=== PATIENT | female | born 1935 | race Caucasian/White ===

== ENCOUNTER → 2016-11-28 | Outpatient (CLI) | payer OTHER ==
[2016-11-28 12:20] LABS: ALT/SGPT 30 U/L (12-78); AST/SGOT 15 U/L (15-37); BLOOD UREA NITROGEN 16 mg/dl (7-18); BUN/CREATININE RATIO 24.5 (10-20); CARBON DIOXIDE 29 mmol/L (21-32); CHLORIDE 105 mmol/L (98-107); CHOLESTEROL 262 mg/dl (0-200); CREATININE 0.65 mg/dl (0.60-1.20); GLUCOSE 95 mg/dl (70-99); SODIUM 142 mmol/L (136-145); TRIGLYCERIDES 59 mg/dl (0-150); VERY LOW DENSITY LIPOPROT CALC 12 mg/dl
[2016-11-28 12:31] LABS: CHOLESTEROL/HDL RATIO 1.8; ESTIMATED AVERAGE GLUCOSE 114 mg/dl; HA1C FLAG Normal (Normal); HDL CHOLESTEROL 143 mg/dl; LDL CHOLESTEROL CALCULATED 107 mg/dl
[2016-11-28 12:56] LABS: URINE APPEARANCE TURBID (CLEAR); URINE BILIRUBIN NEG (NEG); URINE COLOR YELLOW; URINE EPITHELIAL CELL AUTO 20-30 /lpf (0-5); URINE NITRITE NEG (NEG); URINE SPECIFIC GRAVITY 1.015 (1.000-1.030); UROBILINOGEN NEG (NEG)
[2016-11-28 13:09] LABS: MANUAL MICROSCOPIC REQUIRED? NO; REVIEW REQ? NO
--- NOTE | 2016-12-05 07:32 | CODING QUERY MEDICAL NECESSITY ---
CQSUPPORTING DIAGNOSIS NEEDED A supporting diagnosis is required for the test/procedure performed on this patient in order for us to be reimbursed by the patient's insurance. Please provide a supporting diagnosis for the following test/procedure listed below next to the test name along with your signature. *If there is no additional diagnosis for this patient that would support the following test/procedure please document that below next to the test/procedure. Test(s)/Procedure(s) that require a supporting diagnosis: DOS 11/28/16 GYCATED HEMOGLOBIN TEST Provider Signature: Date: Thank you Katja Celestin Health Information Management Once completed, please kindly fax back to [phone] For questions please call [phone]
== END | disposition home or self-care (01) ==
LOC: C.LAB1850 10:07
PROVIDERS: ATTEND Internal Medicine
DX: N39.0 Urinary tract infection, site not specified (principal); E03.9 Hypothyroidism, unspecified; E78.5 Hyperlipidemia, unspecified; R73.03 Prediabetes

== ENCOUNTER → 2016-12-11 | Outpatient (CLI) | payer OTHER | END | disposition home or self-care (01) | LOC: C.LAB1850 11:45 | PROVIDERS: ATTEND Internal Medicine | DX: M79.609 Pain in unspecified limb (principal) ==

== ENCOUNTER → 2017-02-18 | Outpatient (CLI) | payer OTHER ==
--- NOTE | 2017-02-18 13:10 | MAMMOGRAPHY REPORT ---
BILATERAL DIGITAL SCREENING MAMMOGRAM WITH CAD: 02/18/2017 CLINICAL HISTORY: Routine screening. Patient has no complaints. TECHNIQUE: Bilateral CC and MLO views were obtained. Current study was also evaluated with a Compute r Aided Detection (CAD) system. COMPARISON: Comparison is made to exams dated: 02/01/2016 mammogram, 01/16/2015 mammogram, 12/29/2013 m ammogram, 12/25/2012 mammogram, 12/18/2011 mammogram, and 12/06/2010 mammogram - [facility] nter. BREAST COMPOSITION: The tissue of both breasts is heterogeneously dense, which may obscure small mas ses. FINDINGS: There are a few benign rim calcifications and mild vascular calcifications in the breasts. Stable punctate microcalcifications in the lateral left breast. No new suspicious mass, architectur al distortion or cluster of microcalcifications is seen. IMPRESSION: ACR BI-RADS CATEGORY 1: NEGATIVE There is no mammographic evidence of malignancy. A 1 year screening mammogram is recommended. The pa tient will receive written notification of the results. Approximately 10% of breast cancers are not detected with mammography. A negative mammographic report should not delay biopsy if a clinically suggestive mass is present. Noy Perez M.D. ay/:02/18/2017 12:23:49 Pastry Chef: Ibis GRECO(Misa)(Lashay)(BD), [facility] letter sent: Normal 1/2 BI-RADS Code: ACR BI-RADS Category 1: Negative
== END | disposition home or self-care (01) ==
LOC: C.MAMM 11:48
PROVIDERS: ATTEND Nurse Practitioner Adult Health
DX: Z12.31 Encounter for screening mammogram for malignant neoplasm of breast (principal)

== ENCOUNTER → 2017-05-15 | Outpatient (CLI) | payer OTHER ==
[2017-05-15 12:28] LABS: ESTIMATED AVERAGE GLUCOSE 111 mg/dl; HA1C FLAG Normal (Normal)
[2017-05-15 12:58] LABS: BLOOD UREA NITROGEN 15 mg/dl (7-18); CALCIUM 8.7 mg/dl (8.5-10.1); CARBON DIOXIDE 28 mmol/L (21-32); CHLORIDE 107 mmol/L (98-107); CREATININE 0.67 mg/dl (0.60-1.20); GLUCOSE 87 mg/dl (70-99); POTASSIUM 3.8 mmol/L (3.5-5.1); SODIUM 141 mmol/L (136-145)
[2017-05-15 13:08] LABS: CHOLESTEROL 250 mg/dl (0-200); CHOLESTEROL/HDL RATIO 1.9; HDL CHOLESTEROL 129 mg/dl; LDL CHOLESTEROL CALCULATED 110 mg/dl; TRIGLYCERIDES 56 mg/dl (0-150); VERY LOW DENSITY LIPOPROT CALC 11 mg/dl
== END | disposition home or self-care (01) ==
LOC: C.LAB1850 10:03
PROVIDERS: ATTEND Internal Medicine
DX: R53.83 Other fatigue (principal); M85.80 Other specified disorders of bone density and structure, unspecified site; R73.03 Prediabetes; E78.5 Hyperlipidemia, unspecified; E03.9 Hypothyroidism, unspecified; E55.9 Vitamin D deficiency, unspecified

== ENCOUNTER → 2017-12-08 | Outpatient (CLI) | payer OTHER ==
[2017-12-08 11:39] LABS: HEMOGLOBIN A1C 5.7 % (4.5-5.6)
[2017-12-08 11:52] LABS: ALT/SGPT 50 U/L (12-78); AST/SGOT 32 U/L (15-37); BLOOD UREA NITROGEN 19 mg/dl (7-18); CALCIUM 8.5 mg/dl (8.5-10.1); CARBON DIOXIDE 29 mmol/L (21-32); CHOLESTEROL 263 mg/dl (0-200); CREATININE 0.66 mg/dl (0.60-1.20); GLUCOSE 95 mg/dl (70-99); LDL CHOLESTEROL CALCULATED 137 mg/dl; POTASSIUM 3.9 mmol/L (3.5-5.1); SODIUM 141 mmol/L (136-145)
== END | disposition home or self-care (01) ==
LOC: C.LAB1850 09:41
PROVIDERS: ATTEND Internal Medicine
DX: R73.03 Prediabetes (principal); E03.9 Hypothyroidism, unspecified; E78.5 Hyperlipidemia, unspecified

== ENCOUNTER → 2018-02-26 | Outpatient (CLI) | payer OTHER ==
--- NOTE | 2018-02-27 15:27 | MAMMOGRAPHY REPORT ---
BILATERAL DIGITAL SCREENING MAMMOGRAM TOMOSYNTHESIS WITH CAD: 02/26/2018 CLINICAL HISTORY: Routine screening. Patient has no complaints. TECHNIQUE: The study was acquired using full field digital technology and interpreted from soft copy. Breast tomosynthesis in addition to standard 2D mammography was performed. Current study was also ev aluated with a Computer Aided Detection (CAD) system. COMPARISON: Comparison is made to exams dated: 02/18/2017 mammogram, 02/01/2016 mammogram, 01/16/2015 ma mmogram, 12/29/2013 mammogram, 12/25/2012 mammogram, and 12/18/2011 mammogram - [facility] ter. BREAST COMPOSITION: The tissue of both breasts is heterogeneously dense, which may obscure small mass es. FINDINGS: No suspicious masses, calcifications, or areas of architectural distortion are noted in either breast . There has been no significant interval change compared to prior exams. Bilateral benign-appearing calcifications are not significantly changed. IMPRESSION: ACR BI-RADS CATEGORY 2: BENIGN There is no mammographic evidence of malignancy. A 1 year screening mammogram is recommended.( 019) The patient will receive written notification of the results. Some breast cancers are not detected with mammography. A negative mammographic report should not arnulfo y biopsy if a clinically suggestive mass is present. Vandana Su M.D. ah/:02/26/2018 15:11:05 Rehabilitation Services Manager: RT Ace(R)(M), [facility] letter sent: Normal 1/2 BI-RADS Code: ACR BI-RADS Category 2: Benign
== END | disposition home or self-care (01) ==
LOC: C.MAMM 12:59
PROVIDERS: ATTEND Nurse Practitioner Adult Health
DX: Z12.31 Encounter for screening mammogram for malignant neoplasm of breast (principal)

== ENCOUNTER 2024-03-28 19:42 | Inpatient (IN) ==
[2024-03-28 20:38] LABS: Basophils # (auto) 0.04 K/uL (0.00-0.20); Basophils % (auto) 0.6 %; Eosinophils # (auto) 0.13 K/uL (0.00-0.50); Eosinophils % (auto) 1.9 %; Hematocrit (blood only) 41.7 % (37.0-47.0); Hemoglobin 14.2 g/dl (12.0-16.0); Immature Granulocytes # (auto) 0.02 K/uL (0.01-0.20); Immature Granulocytes % (auto) 0.3 %; Lymphocytes # (auto) 1.44 K/uL (1.20-3.40); Lymphocytes % (auto) 21.4 %; Mean Corpuscular Hemoglobin 31.6 pg (25.0-34.0); Mean Corpuscular Hgb Conc 34.1 g/dL (32.0-36.0); Mean Corpuscular Volume 92.7 fL (80.0-100.0); Mean Platelet Volume 9.6 fL (9.4-12.4); Monocytes % (auto) 7.4 %; Neutrophils # (auto) 4.61 K/uL (1.40-6.50); Neutrophils % (auto) 68.4 %; Platelet Count 374 K/uL (130-400); RDW Coefficient of Variation 13.3 % (11.5-14.5); RDW Standard Deviation 45.8 fL (36.4-46.3); White Blood Count 6.74 K/ul (4.8-10.8)
--- NOTE | 2024-03-28 20:54 | Emergency Department Note ---
Impression & Plan Generalized weakness, Ambulatory dysfunction ED Provider Note HISTORY OF PRESENT ILLNESS: Patient is an 89-year-old female presenting with weakness. Patient reports that she was living in [place] for the last 13 years and just moved back to the [facility] 1 year ago. She reports that she has a history of parkinsonian is him and is on carbidopa/levodopa. She reports she has been unable to establish yet with a neurologist in the [facility]. She had a referral from her primary care provider to establish with a neurologist at [facility], but her appointment is not for a number of months. She states that in the last 3 days she has been having progressively worsening weakness. Reports that it is taken her anywhere from 2 to 3 hours a day to get up out of bed and be able to get up and walk around with a walker. Her friend at bedside expresses concern about the patient's ability to care for herself at home. Patient denies any fevers. Denies any chest pain or shortness of breath. Denies any recent fall or head injuries or chiropractic manipulation of her neck. Denies any abdominal pain, nausea or vomiting. She denies any dysuria or hematuria. ROS: as above PHYSICAL EXAM: Constitutional: Patient appears in no acute distress. HENT: Head: Normocephalic and atraumatic. Eyes: EOMI, PERRL Mouth/Throat: Mucous membranes moist. Neck: Trachea midline. Neck supple. Cardiovascular: RRR, No murmurs, rubs or gallops. Intact distal pulses. Pulmonary/Chest: No respiratory distress. Breath sounds clear and equal bilaterally. No wheezes or rales Abdominal: Abdomen soft, no tenderness, rebound or guarding. Musculoskeletal: No edema, tenderness or deformity noted. Skin: Warm and dry. No rash, erythema, pallor or cyanosis Psychiatric: Appropriate mood and affect for situation. Neurological: Alert and keenly responsive. CN II-XII grossly intact, moving all extremities equally and fully. MDM: - Vitals signs showed hypertension - History obtained via patient. History as above. - Chronic conditions affecting care: Parkinsonian is him; hypothyroidism; HLD; pre-diabetes - Differential diagnoses include, but are not limited to: UTI; pneumonia; CVA; electrolyte abnormality; ACS; dysrhythmia; deconditioning - Order placed for continuous cardiac monitoring. At this time, monitor showed rate of 89 bpm with normal sinus rhythm, per my interpretation. - External medical records reviewed. Wellness visit note dated 12/22/2023 was reviewed. Patient was seen in clinic for her Medicare annual wellness exam. - EKG interpreted by myself showed normal sinus rhythm. Rate 82 bpm. QT 350. No acute ischemic changes. - Laboratory workup interpreted by myself showed normal WBC; normal PT/INR; stable electrolytes; normal troponin; normal TSH - UA negative for infection - CXR negative for pneumonia, per my interpretation - Viral respiratory panel negative - Concern by patient's friend expressed about her safety at home at this time given her weakness. Did discuss potential admission for PT/OT assessment and potential placement at rehab, to which the patient was agreeable. - Discussion was had with director case management about patient's case and need for admission - Hospitalist, Dr. Chaney, consulted for admission - Patient admitted to [facility] service for further evaluation and management. ASSESSMENT AND PLAN: Diagnosis: Generalized weakness; ambulatory dysfunction Plan: admit Past Med/Surg History Problem List (Updated 03/28/24 @ 22:00 by Mariann Wise MD) Ambulatory dysfunction (Acute) Generalized weakness (Acute) Balance disorder Sciatic pain Medicare annual wellness visit, subsequent Psoas muscle strain Parkinsonism Generalized osteoarthritis of multiple sites (Acute) Hyperlipidemia (Acute) Hypothyroidism (Acute) Osteopenia (Acute) Prediabetes (Acute) Venous insufficiency (Acute) Vitamin D deficiency (Acute) Medical History Achilles tendinitis Surgical History No history of previous surgery Family History Sister Colorectal cancer Myocardial infarction Dementia Grandmother (Maternal) Rheumatoid arthritis Father Emphysema, unspecified Denies family history of Ovarian cancer Prostate cancer Breast cancer Social History Smoking Status: Never smoker Second Hand Exposure: No; Do You Dip or Chew Tobacco: No; Hx Alcohol Use: Yes Alcohol type: wine Alcohol Intake Frequency: 2-3 x/Week Hx Substance Use: No Preferred Language: Cuban Communication Ability: Effective Visual Impairment: Limited Hearing Ability: Normal marital status: / Current Living Situation: Alone current occupational status: retired Feels Safe at Home: Yes Childhood Exposure to Second-Hand Smoke: Yes Diet: regular Dental Care, Regularly: Yes Physical Activity Frequency: Does not Exercise Seatbelt Use: always Sunscreen Use: Yes Allergies Allergies Allergy/AdvReac Type Severity Reaction Status Date / Time Bee sting Allergy Uncoded 12/22/23 14:08 Perry POWD Allergy Uncoded 12/22/23 14:08 Food Dye Allergy Uncoded 12/22/23 14:08 Sulfa Drugs Allergy Uncoded 12/22/23 14:08 Home Meds Home Medications Medication Instructions Recorded Confirmed azelastine 205.5 mcg (0.15 %) 2 sprays intranasal DAILY PRN 05/20/19 03/28/24 nasal spray allergy symptoms estradiol 0.025 mg/24 hr weekly 1 patch transdermal WK 05/20/19 03/28/24 transdermal patch fexofenadine 180 mg tablet 180 mg PO DAILY PRN allergy 05/20/19 03/28/24 symptoms #30 tabs fluticasone propionate 50 1 - 2 sprays intranasal DAILY PRN 05/20/19 03/28/24 mcg/actuation nasal allergy symptoms #1 g spray,suspension carbidopa ER 50 mg-levodopa 200 mg 1 tab PO QID 07/05/20 03/28/24 tablet,extended release multivitamin (Super Multivitamin 1 tab PO DAILY 04/29/22 03/28/24 tablet) magnesium chloride 64 mg 64 mg PO DAILY 06/20/23 03/28/24 (magnesium chloride) tablet,delayed release (Mag 64) vitamin B complex 1 tab PO DAILY 03/28/24 03/28/24 Previous Rx's Medication Instructions Recorded epinephrine 0.3 mg/0.3 mL 0.3 mg (0.3 mL) IM PRN #2 ea 04/29/22 injection, auto-injector coenzyme Q10 100 mg capsule 100 mg PO DAILY #30 caps 12/12/22 (CoQ-10) levothyroxine 50 mcg tablet 100 mcg (2 x 50 mcg) PO DAILY #180 06/30/23 tabs ibuprofen 600 mg tablet 600 mg PO BID #180 tabs 03/02/24 Results & Data (ED) Vital Signs Vital Signs - 24 hr 03/28/24 19:44 03/28/24 19:55 03/28/24 19:56 Temperature 36.8 C Temperature Source Temporal Artery Scan Pulse Rate 105 H 89 Pulse Rhythm Regular Pulse Strength Normal Respiratory Rate 18 Respiratory Effort / Characteristics Non-Labored Spontaneous Respiratory Depth Normal Respiratory Pattern Regular Blood Pressure 147/82 H Blood Pressure Mean 103 Blood Pressure Position Sitting Pulse Oximetry 96 97 Oxygen Delivery Method Room Air Room Air Sepsis Recent Fever Within 48 Hours No Sepsis New/Unexplained Change in Mental Status N/A Sepsis Action Taken by Nursing No Action Required Laboratory Data 03/28/24 20:12 03/28/24 20:12 Lab Results 03/28/24 03/28/24 Range/Units 20:12 21:08 WBC 6.74 (4.8-10.8) K/ul RBC 4.50 (4.20-5.40) M/uL Hgb 14.2 (12.0-16.0) g/dl Hct 41.7 (37.0-47.0) % MCV 92.7 (80.0-100.0) fL MCH 31.6 (25.0-34.0) pg MCHC 34.1 (32.0-36.0) g/dL RDW Std Deviation 45.8 (36.4-46.3) fL RDW Coeff of Scott 13.3 (11.5-14.5) % Plt Count 374 (130-400) K/uL MPV 9.6 (9.4-12.4) fL Immature Gran % (Auto) 0.3 % Neut % (Auto) 68.4 % Lymph % (Auto) 21.4 % Hughes % (Auto) 7.4 % Eos % (Auto) 1.9 % Baso % (Auto) 0.6 % Neut # (Auto) 4.61 (1.40-6.50) K/uL Lymph # (Auto) 1.44 (1.20-3.40) K/uL Hughes # (Auto) 0.50 (0.11-0.59) K/uL Eos # (Auto) 0.13 (0.00-0.50) K/uL Baso # (Auto) 0.04 (0.00-0.20) K/uL Immature Gran # (Auto) 0.02 (0.01-0.20) K/uL PT 10.3 (9.0-12.0) Seconds INR 0.9 (0.9-1.1) Sodium 138 (136-145) mmol/L Potassium 3.8 (3.5-5.1) mmol/L Chloride 103 (98-107) mmol/L Carbon Dioxide 29 (21-32) mmol/L Anion Gap 6 (3-11) BUN 27 H (6-23) mg/dl Creatinine 0.63 (0.6-1.2) mg/dl Est Cr Clr Drug Dosing 49.8 ml/min Est GFR ( Amer) 93.5 ml/min Est GFR (Non-Af Amer) 80.6 ml/min BUN/Creatinine Ratio 42.9 H (10-20) Glucose 98 (70-99(Fasting)) mg/dl Lactate 1.0 (0.4-2.0) mmol/L Calcium 8.9 (8.6-10.3) mg/dl Magnesium 1.9 (1.7-2.4) mg/dl Total Bilirubin 0.5 (0.2-1.0) mg/dl AST 20 (13-39) U/L ALT 5 L (7-52) U/L Alkaline Phosphatase 65 (34-104) U/L Troponin I High Sens 5.0 (0-14) pg/ml Total Protein 6.3 (6.0-8.3) gm/dl Albumin 4.0 (3.4-5.0) gm/dl Globulin 2.3 L (2.5-4.0) gm/dl Albumin/Globulin Ratio 1.7 (0.9-2) TSH 0.549 (0.300-4.500) uIu/ml Urine Color Yellow Urine Appearance Clear (Clear) Urine pH 6.5 (4.5-7.5) Ur Specific [place] 1.011 (1.000-1.030) Urine Protein Negative (Negative) Urine Glucose (UA) Negative (Negative) Urine Ketones Negative (Negative) Urine Blood Negative (Negative) Urine Nitrite Negative (Negative) Urine Bilirubin Negative (Negative) Urine Urobilinogen Negative (Negative) Ur Leukocyte Esterase Negative (Negative) Adenovirus (PCR) Not Detected (NotDetected) B. pertussis DNA (PCR) Not Detected (NotDetected) B.parapertussis DNA PCR Not Detected (NotDetected) C. pneumoniae DNA (PCR) Not Detected (NotDetected) Coronavirus OC43 (PCR) Not Detected (NotDetected) Coronavirus HKU1 (PCR) Not Detected (NotDetected) Coronavirus 229E (PCR) Not Detected (NotDetected) SARS-CoV-2 (PCR) Not Detected (NotDetected) Coronavirus NL63 (PCR) Not Detected (NotDetected) Human Metapneumovir PCR Not Detected (NotDetected) Influenza Type A (PCR) Not Detected (NotDetected) Influenza Type B (PCR) Not Detected (NotDetected) M. pneumoniae (PCR) Not Detected (NotDetected) Parainfluenza 1 (PCR) Not Detected (NotDetected) Parainfluenza 2 (PCR) Not Detected (NotDetected) Parainfluenza 3 (PCR) Not Detected (NotDetected) Parainfluenza 4 (PCR) Not Detected (NotDetected) RSV (PCR) Not Detected (NotDetected) Entero/Rhino (PCR) Not Detected (NotDetected) Discharge Plan Visit Data Chief Complaint: Leg Weakness, Bilateral Stated Complaint: WEAKNESS IN LEGS, COULDN'T GET UP ED Provider: Mariann Wise Discharge Problem: Generalized weakness, Ambulatory dysfunction Forms Stand Alone Forms: My [facility] Prescriptions Prescriptions: No Action levothyroxine 50 mcg tablet 100 mcg PO DAILY Qty: 180 3RF ibuprofen 600 mg tablet 600 mg PO BID Qty: 180 1RF Rx Instructions: Never take on an empty stomach and be sure to drink plenty of water azelastine 0.15 % (205.5 mcg) spray,non-aerosol 2 sprays INTNAS DAILY PRN (Reason: allergy symptoms) Mag 64 64 mg tablet,delayed release (DR/EC) 64 mg PO DAILY carbidopa-levodopa 50-200 mg tablet extended release 1 tab PO QID Rx Instructions: divide evenly over waking hours estradiol 0.025 mg/24 hr patch weekly 1 patch TD WK fexofenadine 180 mg tablet 180 mg PO DAILY PRN (Reason: allergy symptoms) Qty: 30 fluticasone propionate 50 mcg/actuation spray,suspension 1 - 2 sprays intranasal DAILY PRN (Reason: allergy symptoms) Qty: 1 multivitamin [Super Multivitamin] Tablet 1 tab PO DAILY epinephrine 0.3 mg/0.3 mL auto-injector 0.3 mg IM PRN Qty: 2 3RF coenzyme Q10 [CoQ-10] 100 mg capsule 100 mg PO DAILY Qty: 30 0RF vitamin B complex Tablet 1 tab PO DAILY Referrals Referrals: ProReggie MD [Primary Care Provider] -
[2024-03-28 20:58] LABS: Albumin Globulin Ratio 1.7 (0.9-2); BUN Creatinine Ratio 42.9 (10-20); Bilirubin,Total 0.5 mg/dl (0.2-1.0); Calcium 8.9 mg/dl (8.6-10.3); Creatinine Clr Calc Pharmacy 49.8 ml/min; Est GFR (African American) 93.5 ml/min; Est GFR (Non-African American) 80.6 ml/min; Globulin 2.3 gm/dl (2.5-4.0); Magnesium 1.9 mg/dl (1.7-2.4); Potassium 3.8 mmol/L (3.5-5.1); Total Protein 6.3 gm/dl (6.0-8.3)
[2024-03-28 21:08] LABS: INR 0.9 (0.9-1.1); Prothrombin Time 10.3 Seconds (9.0-12.0)
[2024-03-28 21:13] LABS: Thyroid Stimulating Hormone 0.549 uIu/ml (0.300-4.500)
[2024-03-28 21:22] LABS: Adenovirus PCR Not Detected (NotDetected); Bordetella parapertussis PCR Not Detected (NotDetected); Bordetella pertussis PCR Not Detected (NotDetected); Chlamydia pneumoniae PCR Not Detected (NotDetected); Coronavirus 229E PCR Not Detected (NotDetected); Coronavirus CoV-2 (COVID19)PCR Not Detected (NotDetected); Coronavirus HKU1 PCR Not Detected (NotDetected); Coronavirus NL63 PCR Not Detected (NotDetected); Coronavirus OC43PCR Not Detected (NotDetected); Human Metapneumovirus PCR Not Detected (NotDetected); Influenza A PCR Not Detected (NotDetected); Influenza B PCR Not Detected (NotDetected); Mycoplasma pneumoniae PCR Not Detected (NotDetected); Parainfluenza Virus 1 PCR Not Detected (NotDetected); Parainfluenza Virus 2 PCR Not Detected (NotDetected); Parainfluenza Virus 3 PCR Not Detected (NotDetected); Parainfluenza Virus 4 PCR Not Detected (NotDetected); Respiratory Syncytial VirusPCR Not Detected (NotDetected); Rhinovirus/Enterovirus PCR Not Detected (NotDetected)
[2024-03-28 21:28] LABS: Appearance Urine Clear (Clear); Bilirubin Urine Negative (Negative); Blood Urine Negative (Negative); Color Urine Yellow; Glucose Urine UA Negative (Negative); Ketones Urine Negative (Negative); Leukocyte Esterase Urine Negative (Negative); Nitrite Urine Negative (Negative); Protein Urine Negative (Negative); Specific Gravity Urine 1.011 (1.000-1.030); Urobilinogen Urine Negative (Negative); pH Urine 6.5 (4.5-7.5)
--- NOTE | 2024-03-28 22:17 | History & Physical Report ---
Date of Service March 28, 2024 Assessment & Plan (1) Ambulatory dysfunction: Plan: Patient with progressive decline, possibly secondary to her Parkinsonism. No obvious infection, electrolyte abnormality or renal disease -Admit to medical -PT/OT evaluation -CM evaluation for placement -Consider Neurology consultation - patient should establish locally with Neurology (2) Parkinsonism: Plan: Patient on Carbidopa-Levodopa - notes worsening balance over the last week, after filling a new prescription -Continue Sinemet at home dose -Consider Neurology consultation vs outpatient followup History of Present Illness Chief Complaint: weakness Primary Care Provider: Reggie Lubin MD Mildred Unger is an 89yo female with history of Hyperlipidemia, Hypothyroidism and Parkinsonism on longstanding Carbidopa-Levodopa therapy presenting with progressive generalized weakness. Patient reports taking 3 hours to get up out of bed yesterday. She has generalized weakness otherwise no specific complaints. Patient lives alone - has family that checks on her. She did just get a new prescription of her Carbidopa-Levodopa filled recently. 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 She feels that her medication isn't lasting as long as it used to. She started her new prescription approximately one week ago. She gets her prescriptions from her previous doctor in [place]. Does not follow locally with Neurology. She has tried to get in to [facility] but the wait is over 1 year out. In the ER she is afebrile, HD stable and nontoxic Allergies Allergy/AdvReac Type Severity Reaction Status Date / Time Bee sting Allergy Uncoded 12/22/23 14:08 [place] POWD Allergy Uncoded 12/22/23 14:08 Food Dye Allergy Uncoded 12/22/23 14:08 Sulfa Drugs Allergy Uncoded 12/22/23 14:08 Home Medications Medication Instructions Recorded Confirmed Type azelastine 205.5 mcg (0.15 %) 2 sprays intranasal DAILY PRN 05/20/19 03/28/24 History nasal spray allergy symptoms estradiol 0.025 mg/24 hr weekly 1 patch transdermal WK 05/20/19 03/28/24 History transdermal patch fexofenadine 180 mg tablet 180 mg PO DAILY PRN allergy 05/20/19 03/28/24 History symptoms #30 tabs fluticasone propionate 50 1 - 2 sprays intranasal DAILY PRN 05/20/19 03/28/24 History mcg/actuation nasal allergy symptoms #1 g spray,suspension carbidopa ER 50 mg-levodopa 200 mg 1 tab PO QID 07/05/20 03/28/24 History tablet,extended release epinephrine 0.3 mg/0.3 mL 0.3 mg (0.3 mL) IM PRN #2 ea 04/29/22 03/28/24 Rx injection, auto-injector multivitamin (Super Multivitamin 1 tab PO DAILY 04/29/22 03/28/24 History tablet) coenzyme Q10 100 mg capsule 100 mg PO DAILY #30 caps 12/12/22 03/28/24 Rx (CoQ-10) magnesium chloride 64 mg 64 mg PO DAILY 06/20/23 03/28/24 History (magnesium chloride) tablet,delayed release (Mag 64) levothyroxine 50 mcg tablet 100 mcg (2 x 50 mcg) PO DAILY #180 06/30/23 03/28/24 Rx tabs ibuprofen 600 mg tablet 600 mg PO BID #180 tabs 03/02/24 03/28/24 Rx vitamin B complex 1 tab PO DAILY 03/28/24 03/28/24 History Past Med/Surg History Problem List Ambulatory dysfunction (Acute) Generalized weakness (Acute) Balance disorder Sciatic pain Medicare annual wellness visit, subsequent Psoas muscle strain Parkinsonism Generalized osteoarthritis of multiple sites (Acute) Hyperlipidemia (Acute) Hypothyroidism (Acute) Osteopenia (Acute) Prediabetes (Acute) Venous insufficiency (Acute) Vitamin D deficiency (Acute) Medical History Achilles tendinitis Surgical History No history of previous surgery Family History Sister Colorectal cancer Myocardial infarction Dementia Grandmother (Maternal) Rheumatoid arthritis Father Emphysema, unspecified Denies family history of Ovarian cancer Prostate cancer Breast cancer Social History Smoking Status: Never smoker Second Hand Exposure: No; Do You Dip or Chew Tobacco: No; Hx Alcohol Use: Yes Alcohol type: wine Alcohol Intake Frequency: 2-3 x/Week Hx Substance Use: No Preferred Language: Belarusian Communication Ability: Effective Visual Impairment: Limited Hearing Ability: Normal marital status: / Current Living Situation: Alone current occupational status: retired Feels Safe at Home: Yes Childhood Exposure to Second-Hand Smoke: Yes Diet: regular Dental Care, Regularly: Yes Physical Activity Frequency: Does not Exercise Seatbelt Use: always Sunscreen Use: Yes Review of Systems Review of Systems: All systems reviewed & are unremarkable except as noted in HPI & below Physical Exam Physical Exam: General: patient resting comfortably, NAD, non-toxic in appearance, AA&O x 4 Skin: warm, dry, intact, no rashes or lesions HEENT: NC/AT, PERRL, EOMI, anicteric sclera, conjunctiva without injection, external ear normal to inspection and nontender, nares patent, moist mucus membranes, dentition intact, no oropharyngeal lesions, neck supple, trachea midline, no LAD, no thyromegaly, no JVD Heart: +S1/S2, regular, no m/r/g Lungs: equal air entry bilaterally, no rales/rhonchi/wheezes Abd: +BS, soft, NT/ND, no masses/organomegaly/ascites Ext: warm, 2+ pulses in UE/LE bilaterally, no clubbing/cyanosis or edema Neuro: some rigidity noted in right wrist and hand, patient is slow to answer questions Results & Data Results & Data Vital Signs (Past 12 Hours) Vital Signs Temp Pulse Resp BP Pulse Ox O2 Del Method 03/28/24 19:56 89 03/28/24 19:55 97 Room Air 03/28/24 19:44 36.8 C 105 H 18 147/82 H 96 Room Air Laboratory Results Laboratory Results WBC 6.74 K/ul (4.8-10.8) 03/28/24 20:12 RBC 4.50 M/uL (4.20-5.40) 03/28/24 20:12 Hgb 14.2 g/dl (12.0-16.0) 03/28/24 20:12 Hct 41.7 % (37.0-47.0) 03/28/24 20:12 MCV 92.7 fL (80.0-100.0) 03/28/24 20:12 MCH 31.6 pg (25.0-34.0) 03/28/24 20:12 MCHC 34.1 g/dL (32.0-36.0) 03/28/24 20:12 RDW Std Deviation 45.8 fL (36.4-46.3) 03/28/24 20:12 RDW Coeff of Scott 13.3 % (11.5-14.5) 03/28/24 20:12 Plt Count 374 K/uL (130-400) 03/28/24 20:12 MPV 9.6 fL (9.4-12.4) 03/28/24 20:12 Immature Gran % (Auto) 0.3 % 03/28/24 20:12 Neut % (Auto) 68.4 % 03/28/24 20:12 Lymph % (Auto) 21.4 % 03/28/24 20:12 Carter % (Auto) 7.4 % 03/28/24 20:12 Eos % (Auto) 1.9 % 03/28/24 20:12 Baso % (Auto) 0.6 % 03/28/24 20:12 Neut # (Auto) 4.61 K/uL (1.40-6.50) 03/28/24 20:12 Lymph # (Auto) 1.44 K/uL (1.20-3.40) 03/28/24 20:12 Carter # (Auto) 0.50 K/uL (0.11-0.59) 03/28/24 20:12 Eos # (Auto) 0.13 K/uL (0.00-0.50) 03/28/24 20:12 Baso # (Auto) 0.04 K/uL (0.00-0.20) 03/28/24 20:12 Immature Gran # (Auto) 0.02 K/uL (0.01-0.20) 03/28/24 20:12 PT 10.3 Seconds (9.0-12.0) 03/28/24 20:12 INR 0.9 (0.9-1.1) 03/28/24 20:12 Sodium 138 mmol/L (136-145) 03/28/24 20:12 Potassium 3.8 mmol/L (3.5-5.1) 03/28/24 20:12 Chloride 103 mmol/L (98-107) 03/28/24 20:12 Carbon Dioxide 29 mmol/L (21-32) 03/28/24 20:12 Anion Gap 6 (3-11) 03/28/24 20:12 BUN 27 mg/dl (6-23) H 03/28/24 20:12 Creatinine 0.63 mg/dl (0.6-1.2) 03/28/24 20:12 Est Cr Clr Drug Dosing 49.8 ml/min 03/28/24 20:12 Est GFR ( Amer) 93.5 ml/min 03/28/24 20:12 Est GFR (Non-Af Amer) 80.6 ml/min 03/28/24 20:12 BUN/Creatinine Ratio 42.9 (10-20) H 03/28/24 20:12 Glucose 98 mg/dl (70-99(Fasting)) 03/28/24 20:12 Lactate 1.0 mmol/L (0.4-2.0) 03/28/24 20:12 Calcium 8.9 mg/dl (8.6-10.3) 03/28/24 20:12 Magnesium 1.9 mg/dl (1.7-2.4) 03/28/24 20:12 Total Bilirubin 0.5 mg/dl (0.2-1.0) 03/28/24 20:12 AST 20 U/L (13-39) 03/28/24 20:12 ALT 5 U/L (7-52) L 03/28/24 20:12 Alkaline Phosphatase 65 U/L (34-104) 03/28/24 20:12 Troponin I High Sens 5.0 pg/ml (0-14) 03/28/24 20:12 Total Protein 6.3 gm/dl (6.0-8.3) 03/28/24 20:12 Albumin 4.0 gm/dl (3.4-5.0) 03/28/24 20:12 Globulin 2.3 gm/dl (2.5-4.0) L 03/28/24 20:12 Albumin/Globulin Ratio 1.7 (0.9-2) 03/28/24 20:12 TSH 0.549 uIu/ml (0.300-4.500) 03/28/24 20:12 Urine Color Yellow 03/28/24 21:08 Urine Appearance Clear (Clear) 03/28/24 21:08 Urine pH 6.5 (4.5-7.5) 03/28/24 21:08 Ur Specific [place] 1.011 (1.000-1.030) 03/28/24 21:08 Urine Protein Negative (Negative) 03/28/24 21:08 Urine Glucose (UA) Negative (Negative) 03/28/24 21:08 Urine Ketones Negative (Negative) 03/28/24 21:08 Urine Blood Negative (Negative) 03/28/24 21:08 Urine Nitrite Negative (Negative) 03/28/24 21:08 Urine Bilirubin Negative (Negative) 03/28/24 21:08 Urine Urobilinogen Negative (Negative) 03/28/24 21:08 Ur Leukocyte Esterase Negative (Negative) 03/28/24 21:08 Adenovirus (PCR) Not Detected (NotDetected) 03/28/24 20:12 B. pertussis DNA (PCR) Not Detected (NotDetected) 03/28/24 20:12 B.parapertussis DNA PCR Not Detected (NotDetected) 03/28/24 20:12 C. pneumoniae DNA (PCR) Not Detected (NotDetected) 03/28/24 20:12 Coronavirus OC43 (PCR) Not Detected (NotDetected) 03/28/24 20:12 Coronavirus HKU1 (PCR) Not Detected (NotDetected) 03/28/24 20:12 Coronavirus 229E (PCR) Not Detected (NotDetected) 03/28/24 20:12 SARS-CoV-2 (PCR) Not Detected (NotDetected) 03/28/24 20:12 Coronavirus NL63 (PCR) Not Detected (NotDetected) 03/28/24 20:12 Human Metapneumovir PCR Not Detected (NotDetected) 03/28/24 20:12 Influenza Type A (PCR) Not Detected (NotDetected) 03/28/24 20:12 Influenza Type B (PCR) Not Detected (NotDetected) 03/28/24 20:12 M. pneumoniae (PCR) Not Detected (NotDetected) 03/28/24 20:12 Parainfluenza 1 (PCR) Not Detected (NotDetected) 03/28/24 20:12 Parainfluenza 2 (PCR) Not Detected (NotDetected) 03/28/24 20:12 Parainfluenza 3 (PCR) Not Detected (NotDetected) 03/28/24 20:12 Parainfluenza 4 (PCR) Not Detected (NotDetected) 03/28/24 20:12 RSV (PCR) Not Detected (NotDetected) 03/28/24 20:12 Entero/Rhino (PCR) Not Detected (NotDetected) 03/28/24 20:12 Diagnostic Findings CXR - per my interpretation - no infiltrate or edema PG Care Time/CCT Total # of Minutes Spent Total Time Spent with Patient: Total time spent is greater than 50% in coordination of care (as documented) at patient's floor/unit and/or counseling patient: Coding Level of Care Code 70114 INT INP/OBS CARE 2/55MIN Diagnoses Ambulatory dysfunction R26.2 Parkinsonism G20
[2024-03-28] MEDS ORDERED: ONDANSETRON INJ 2 MG/ML 2 ML VIAL IV PRN (23:53)
[2024-03-28] MEDS ORDERED: ACETAMINOPHEN 325 MG TAB PO PRN (23:53)
[2024-03-28] MEDS ORDERED: AZELASTINE HCL 0.1% NASAL 200 SPRAYS/27,400 MCG BTL PRN (23:59)
[2024-03-29] MEDS: LEVOTHYROXINE SODIUM 100 MCG TABLET PO SCH (05:47)
--- NOTE | 2024-03-29 07:14 | XRay Report ---
SINGLE VIEW CHEST CLINICAL HISTORY: Generalized weakness FINDINGS: An AP, portable, upright chest radiograph is compared to study dated 02/20/2016. A hiatal her javier is noted. The cardiomediastinal silhouette is top normal for projection noting atherosclerotic ca lcification of the thoracic aorta. Chronic interstitial thickening is similar to previous. Scarring/a telectasis is noted at the lung bases. The lungs and pleural spaces are otherwise clear. No pneumotho rax is seen. The skeletal structures are osteopenic. The bony thorax is grossly intact. Arthritic liliya nge is seen in both shoulders. Superior subluxation of both humeral heads suggest chronic bilateral r otator cuff injury. IMPRESSION: 1. No active disease in the chest. 2. Hiatal hernia. ACT 112: Negative or not required by law. Electronically signed by: Jaime Bansal M.D. 03/29/2024 7:13 AM
[2024-03-29] MEDS: CARBIDOPA/LEVODOPA 50/200MG EXT REL TAB PO SCH (07:44)
--- NOTE | 2024-03-29 09:39 | Neurology Consultation ---
Date of Consultation March 29, 2024 Assessment & Plan (1) Parkinsonism: History of Present Illness Attending Physician: Jimmy Cunningham MD History of Present Illness pt apparently dx with parkinsonism more than 10 yrs ago from [place] and was on sinemet for long time she states overall her parkinsonism has not changed. this morning pt walked with Physical therapy and able to walk with walker without much problem. when asked why she is on sinemet when she does not have parkinson diagnosis, she was not sure and she feels it helps. no focal weakness at this point. chart reviewed. admission HPI: Mildred Unger is an 89yo female with history of Hyperlipidemia, Hypothyroidism and Parkinsonism on longstanding Carbidopa-Levodopa therapy presenting with progressive generalized weakness. Patient reports taking 3 hours to get up out of bed yesterday. She has generalized weakness otherwise no specific complaints. Patient lives alone - has family that checks on her. She did just get a new prescription of her Carbidopa-Levodopa filled recently. 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 She feels that her medication isn't lasting as long as it used to. She started her new prescription approximately one week ago. She gets her prescriptions from her previous doctor in [place]. Does not follow locally with Neurology. She has tried to get in to [facility] but the wait is over 1 year out. In the ER she is afebrile, HD stable and nontoxic Allergies Allergy/AdvReac Type Severity Reaction Status Date / Time venom-honey bee Allergy Severe Unknown Verified 03/28/24 23:59 Sulfa (Sulfonamide Allergy Unknown Unknown Verified 03/28/24 23:59 Antibiotics) [place] POWD Allergy Unknown Uncoded 03/28/24 23:59 Home Medications Medication Instructions Recorded Confirmed Type azelastine 205.5 mcg (0.15 %) 2 sprays intranasal DAILY PRN 05/20/19 03/28/24 History nasal spray allergy symptoms estradiol 0.025 mg/24 hr weekly 1 patch transdermal WK 05/20/19 03/28/24 History transdermal patch fexofenadine 180 mg tablet 180 mg PO DAILY PRN allergy 05/20/19 03/28/24 History symptoms #30 tabs fluticasone propionate 50 1 - 2 sprays intranasal DAILY PRN 05/20/19 03/28/24 History mcg/actuation nasal allergy symptoms #1 g spray,suspension carbidopa ER 50 mg-levodopa 200 mg 1 tab PO QID 07/05/20 03/28/24 History tablet,extended release epinephrine 0.3 mg/0.3 mL 0.3 mg (0.3 mL) IM PRN #2 ea 04/29/22 03/28/24 Rx injection, auto-injector multivitamin (Super Multivitamin 1 tab PO DAILY 04/29/22 03/28/24 History tablet) coenzyme Q10 100 mg capsule 100 mg PO DAILY #30 caps 12/12/22 03/28/24 Rx (CoQ-10) magnesium chloride 64 mg 64 mg PO DAILY 06/20/23 03/28/24 History (magnesium chloride) tablet,delayed release (Mag 64) levothyroxine 50 mcg tablet 100 mcg (2 x 50 mcg) PO DAILY #180 06/30/23 03/28/24 Rx tabs ibuprofen 600 mg tablet 600 mg PO BID #180 tabs 03/02/24 03/28/24 Rx vitamin B complex 1 tab PO DAILY 03/28/24 03/28/24 History Patient History Medical History Achilles tendinitis Surgical History No history of previous surgery Family History Sister Colorectal cancer Myocardial infarction Dementia Grandmother (Maternal) Rheumatoid arthritis Father Emphysema, unspecified Denies family history of Ovarian cancer Prostate cancer Breast cancer Social History Smoking Status: Never smoker Second Hand Exposure: No; Do You Dip or Chew Tobacco: No; Hx Alcohol Use: Yes Alcohol type: wine Alcohol Intake Frequency: 2-3 x/Week Hx Substance Use: No Preferred Language: Cymraes Communication Ability: Effective Visual Impairment: Limited Hearing Ability: Normal Political Science Research Assistant Required: No Beliefs That Will Affect Care: None marital status: / Current Living Situation: Alone current occupational status: retired Feels Safe at Home: Yes Childhood Exposure to Second-Hand Smoke: Yes Diet: regular Dental Care, Regularly: Yes Physical Activity Frequency: Does not Exercise Seatbelt Use: always Sunscreen Use: Yes Assistive Devices: Walker Exam (Neuro) Physical Exam: HEENT: normocephalic grossly Neuro: Mental: AOx4, fluent speech, normal comprehension, no apraxia, no L/R confusion, no neglect CN: PERRL, Full EOM, symmetric face, midline T/U/P, grossly full ROM neck Motor: No abnormal movements, normal tone, 5-/5 t/o bilaterally Coord: intact DTR: 1+ sym b/l Gait: intact grossly with walker, small steps but with good pace. Impression: 89 yo female with generalized subjective weakness. overall her parkinsonism features are very mild and I do not feel she has parkinson disease. I do not feel she has DIE TURNER etiology for her symptoms. Recommendations: she can continue sinemet as now. per pt, her PCP already placed neurology referral and in a process of finding an appt at [facility]. not much to add from neurology stand point. continue supportive care and physical therapy/OT evaluation for any needs. call again if new question. Chart reviewed I have spent more than 50% educating patient about potential diagnosis and neurological evaluation and coordinating care with patient's treatment team. Total time spent (including chart review and coordination of care): 45 min (this includes chart review). Results & Data Vital Signs (Past 12 Hours) Vital Signs Temp Pulse Pulse Resp BP BP Pulse Ox 03/29/24 07:40 36.5 C 84 16 153/89 H 96 03/29/24 00:29 143/82 H 03/29/24 00:00 36.7 C 92 H 18 173/105 H 97 03/29/24 00:00 36.7 C 92 H 18 173/105 H 97 03/28/24 22:57 92 H 23 03/28/24 22:09 99 H 24 148/86 H 97 O2 Del Method 03/29/24 07:40 Room Air 03/29/24 00:29 03/29/24 00:00 Room Air 03/29/24 00:00 Room Air 03/28/24 22:57 03/28/24 22:09 Room Air PG Care Time/CCT Total # of Minutes Spent Total Time Spent with Patient: Total time spent is greater than 50% in coordination of care (as documented) at patient's floor/unit and/or counseling patient: Coding Level of Care Code 48986 IN/OBS CONSULT LVL 3,45M Diagnoses Parkinsonism G20
[2024-03-29] MEDS: IBUPROFEN 600 MG TAB PO SCH (09:54)
--- NOTE | 2024-03-29 12:56 | Electrocardiogram Report ---
Test Reason : Blood Pressure : */* mmHG Vent. Rate : 82 BPM Atrial Rate : 82 BPM P-R Int : 182 ms QRS Dur : 66 ms QT Int : 350 ms P-R-T Axes : 46 29 48 degrees QTcB Int : 408 ms Normal sinus rhythm Normal ECG No previous ECGs available Confirmed by Reggie Dawn ([id number]) on 03/29/2024 12:56:22 PM Referred By: REFERRED SELF Confirmed By: Reggie Dawn
--- NOTE | 2024-03-29 16:43 | Hospitalist Progress Note ---
Date of Service March 29, 2024 Assessment & Plan (1) Ambulatory dysfunction: Plan: Patient with progressive decline, possibly secondary to her Parkinsonism. No obvious infection, electrolyte abnormality or renal disease -Admit to medical -PT/OT evaluation -CM evaluation for placement -Neurology consulted. Continue Sinemet. No active workup or treatment plan recommended (2) Parkinsonism: Plan: Patient on Carbidopa-Levodopa - notes worsening balance over the last week, after filling a new prescription -Continue Sinemet at home dose -Neurology recommended continuing current dose of Sinemet Admission and Anticipated Discharge Date Admission Date: March 28, 2024 Subjective Patient feels well. Denies chest pain or shortness of breath. Says that she is weak and would benefit from some rehab. Review of Systems Review of Systems: All systems reviewed & are unremarkable except as noted in Subjective Physical Exam Physical Exam: General: Awake, conversant Heart: S1, S2/regular rate and rhythm, no murmur rubs or gallops Lungs: Clear to auscultation bilaterally. Normal effort Abdomen: Soft/nontender/nondistended. No hepatosplenomegaly Extremities: No clubbing/cyanosis. No edema Behavior: Appropriate, cooperative Results & Data Results & Data Vital Signs (Past 12 Hours) Vital Signs Temp Pulse Resp BP Pulse Ox O2 Del Method 03/29/24 15:17 36.5 C 85 18 158/78 H 96 Room Air 03/29/24 07:40 36.5 C 84 16 153/89 H 96 Room Air Laboratory Results Abnormal lab results 03/28/24 Range/Units 20:12 BUN 27 H (6-23) mg/dl BUN/Creatinine Ratio 42.9 H (10-20) ALT 5 L (7-52) U/L Globulin 2.3 L (2.5-4.0) gm/dl PG Care Time/CCT Total # of Minutes Spent Total Time Spent with Patient: Total time spent is greater than 50% in coordination of care (as documented) at patient's floor/unit and/or counseling patient: Coding Level of Care Code 02165 SUB INP/OBS CARE 2/35MIN Diagnoses Ambulatory dysfunction R26.2 Parkinsonism G20
[2024-03-29 20:20] VITALS: RESP 16; O2SAT 97
[2024-03-30 07:47] VITALS: BP 154/88; PULSE 79; TEMP 97.9
--- NOTE | 2024-03-30 13:37 | Discharge Summary ---
Date of Service March 30, 2024 Admission HPI Per Admitting Provider Mildred Unger is an 89yo female with history of Hyperlipidemia, Hypothyroidism and Parkinsonism on longstanding Carbidopa-Levodopa therapy presenting with progressive generalized weakness. Patient reports taking 3 hours to get up out of bed yesterday. She has generalized weakness otherwise no specific complaints. Patient lives alone - has family that checks on her. She did just get a new prescription of her Carbidopa-Levodopa filled recently. 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 She feels that her medication isn't lasting as long as it used to. She started her new prescription approximately one week ago. She gets her prescriptions from her previous doctor in [place]. Does not follow locally with Neurology. She has tried to get in to [facility] but the wait is over 1 year out. In the ER she is afebrile, HD stable and nontoxic Admission Exam Per Admitting Provider General: patient resting comfortably, NAD, non-toxic in appearance, AA&O x 4 Skin: warm, dry, intact, no rashes or lesions HEENT: NC/AT, PERRL, EOMI, anicteric sclera, conjunctiva without injection, external ear normal to inspection and nontender, nares patent, moist mucus m embranes, dentition intact, no oropharyngeal lesions, neck supple, trachea midline, no LAD, no thyromegaly, no JVD Heart: +S1/S2, regular, no m/r/g Lungs: equal air entry bilaterally, no rales/rhonchi/wheezes Abd: +BS, soft, NT/ND, no masses/organomegaly/ascites Principal Diagnosis Generalized weakness causing ambulatory dysfunction Parkinsonism Discharge Exam General: Awake, conversant Heart: S1, S2/regular rate and rhythm, no murmur rubs or gallops Lungs: Clear to auscultation bilaterally. Normal effort Abdomen: Soft/nontender/nondistended. No hepatosplenomegaly Extremities: No clubbing/cyanosis. No edema Behavior: Appropriate, cooperative Discharge Data Allergies Allergy/AdvReac Type Severity Reaction Status Date / Time venom-honey bee Allergy Severe Unknown Verified 03/28/24 23:59 Sulfa (Sulfonamide Allergy Unknown Unknown Verified 03/28/24 23:59 Antibiotics) [place] POWD Allergy Unknown Uncoded 03/28/24 23:59 Consultations 03/28/24 21:53 ED Decision to Admit Stat 03/29/24 08:10 Consult Neurology Routine Hospital Course (1) Ambulatory dysfunction: Patient with progressive decline, possibly secondary to her Parkinsonism. No obvious infection, electrolyte abnormality or renal disease -Admit to medical -PT/OT evaluation -CM evaluation for placement -Neurology consulted. Continue Sinemet. No active workup or treatment plan recommended (2) Parkinsonism: Patient on Carbidopa-Levodopa - notes worsening balance over the last week, after filling a new prescription -Continue Sinemet at home dose -Neurology recommended continuing current dose of Sinemet Patient will need to establish care with a neurologist locally Total Time Total Time Spent Total Time Spent (In Minutes): 35 Discharge Plan Discharge Items Patient Disposition: Transfer Inpatient Rehab Fac Reason For Visit: IMBALANCE, GENERALIZED WEAKNESS Discharge Diagnosis: Generalized weakness causing ambulatory dysfunction Parkinsonism Activity: Resume your previous activity Non-emergency contact: Primary Care Provider Call non-emergency contact if: you have any medication questions Follow-up/Referrals: Reggie Lubin MD [Primary Care Provider] - Diet: Heart Healthy Addtl Attending Provider Instructions: Advised to follow-up with PCP in 1 week Pending Studies at Discharge: No Stand-Alone Forms: My [employer] Patient informed of condition?: Yes DNR: Yes Discharge Level of Care: Acute rehab Communicable Disease: No Discharge Prognosis: Stable Lines: None Urinary Catheter: No Medications and DC Order Prescriptions: Continued levothyroxine 50 mcg tablet 100 mcg PO DAILY Qty: 180 3RF ibuprofen 600 mg tablet 600 mg PO BID Qty: 180 1RF Rx Instructions: Never take on an empty stomach and be sure to drink plenty of water azelastine 0.15 % (205.5 mcg) spray,non-aerosol 2 sprays INTNAS DAILY PRN (Reason: allergy symptoms) Mag 64 64 mg tablet,delayed release (DR/EC) 64 mg PO DAILY carbidopa-levodopa 50-200 mg tablet extended release 1 tab PO QID Rx Instructions: divide evenly over waking hours estradiol 0.025 mg/24 hr patch weekly 1 patch TD WK fexofenadine 180 mg tablet 180 mg PO DAILY PRN (Reason: allergy symptoms) Qty: 30 fluticasone propionate 50 mcg/actuation spray,suspension 1 - 2 sprays intranasal DAILY PRN (Reason: allergy symptoms) Qty: 1 multivitamin [Super Multivitamin] Tablet 1 tab PO DAILY epinephrine 0.3 mg/0.3 mL auto-injector 0.3 mg IM PRN Qty: 2 3RF coenzyme Q10 [CoQ-10] 100 mg capsule 100 mg PO DAILY Qty: 30 0RF vitamin B complex Tablet 1 tab PO DAILY Discharge Orders: Discharge Order (Routine); Ordered 03/30/24 Ordered By: Jimmy Cunningham Admission Data Admit Date/Time: 03/28/24 22:16 Attending Provider: Jimmy Cunningham Admit Provider: Jovana Chaney Primary Care Provider: Reggie Lubin Other Providers: Jovana Chaney; Camron Meraz; [facility]
[2024-03-30] MEDS: POLYETHYLENE (MIRALAX) 17 GM PACK PO SCH (14:37)
== END 2024-03-30 15:44 | DRG 57 ==
LOC: ED 19:42 → SUATTDRO 22:16 → 3E 22:16

== ENCOUNTER 2024-06-07 15:41 | Observation (INO) ==
--- NOTE | 2024-06-07 16:05 | Emergency Department Note ---
Impression & Plan Weakness, Debilitated, Left knee pain ED Provider Note NAME: RADHIKA BRANDON AGE: 89 SEX: F : 1935 ARRIVES VIA: Ambulance INFORMANT: [Patient][ems] ED PROVIDER(S): [Jaime Carrillo MD] CHIEF COMPLAINT: Knee injury HISTORY OF PRESENT ILLNESS: The patient is an 89-year-old female who states that she was to [facility] for weakness and the inability to function well in her home but, she was referred in because she has pain in her left knee. The patient believes she twisted the left knee about a week ago doing physical therapy and, this is keeping her from getting around. She cannot function well enough in her home and for this reason, was going to go to rehab. The patient denies cough or cold or congestion. No abdominal or chest pain. No fever. PMHx/PSHx/Social Hx: See Below PHYSICAL EXAM: GENERAL: Patient is in no acute distress. HEENT: No acute trauma, normocephalic atraumatic, mucous membranes moist, no nasal congestion. NECK: No stridor, no adenopathy, no meningismus, trachea is midline. LUNGS: Clear to auscultation bilaterally, no wheeze, no rhonchi, breath sounds equal. HEART: Without murmurs gallops or rubs, regular rate and rhythm. ABDOMEN: Soft, nontender, no peritonitis. EXTREMITIES: No cyanosis, no pain to move the left knee joint, no left knee joint effusion. The patella and quadriceps tendons are intact. She is tender over the medial aspect of the knee. NEUROLOGIC: Awake and alert, no acute motor or sensory deficits, no focal weakness. SKIN: No jaundice, no diaphoresis. DIFFERENTIAL DIAGNOSIS: Sprain, strain, fracture, effusion, anemia, electrolyte imbalance, dehydration, debilitation, among others. EMERGENCY DEPARTMENT PROCEDURES: MEDICAL DECISION MAKING: There is no leukocytosis or concerning anemia. There is a normal platelet count. No renal failure or significant electrolyte abnormality. No concerning liver enzyme elevation. Urinalysis does not show findings of infection. COVID test was negative. Left knee film does not show fracture, some arthritis was seen. On exam, the patient was not toxic or febrile. The patient presents with increasing weakness and the inability to function at home. She lives alone. The patient's daughter arrived and the family has been trying to make arrangements for either inpatient rehab or assisted living care. The patient is not safe at home. Given the circumstances, I did consult case management. The patient will require a hospital stay and eventual rehab/assisted living center placement. I did speak with the patient and daughter, the on-call hospitalist was consulted. I suspect the primary issue over the last several days is debilitation, no findings of infection or an acute emergent process this evening. Prior/Outside records/notes reviewed: Today's EMS notes describing her presentation and transport to this hospital. ECG per my interpretation: Indication was weakness. The ECG shows a normal sinus rhythm with a rate of 85. There is no ST elevation, no PVCs. The QTc was 416. Imaging/x-ray results per my interpretation: Left knee film shows arthritis, no obvious fracture, no bony dislocation. Chronic Medical/Social conditions affecting care: Advanced age. Care/Management discussed with: Case management. The on-call hospitalist. Level of care consideration(s): After review of the information above and other included data: --I believe the patient requires escalation of care to admission DISPOSITION: Admission Past Med/Surg History Problem List (Updated 06/07/24 @ 20:22 by Jaime Carrillo MD) Left knee pain (Acute) Debilitated (Acute) Weakness (Acute) Left knee injury Dehydration Ambulatory dysfunction (Acute) Generalized weakness (Acute) Balance disorder Sciatic pain Medicare annual wellness visit, subsequent Psoas muscle strain Parkinsonism Generalized osteoarthritis of multiple sites (Acute) Hyperlipidemia (Acute) Hypothyroidism (Acute) Osteopenia (Acute) Prediabetes (Acute) Venous insufficiency (Acute) Vitamin D deficiency (Acute) Medical History Achilles tendinitis Surgical History No history of previous surgery Family History (Updated 05/16/24 @ 22:40 by Tierney Pool PA-C) Sister , age 87 (twin). Colorectal cancer Myocardial infarction Dementia Grandmother (Maternal) Rheumatoid arthritis Father Emphysema, unspecified Denies family history of Ovarian cancer Prostate cancer Breast cancer Social History Smoking Status: Never smoker Second Hand Exposure: No; Do You Dip or Chew Tobacco: No; Hx Alcohol Use: Yes Alcohol type: wine Alcohol Intake Frequency: 2-3 x/Week Hx Substance Use: No Preferred Language: Croatian Communication Ability: Effective Visual Impairment: Limited Hearing Ability: Normal Casting Sorter Required: No Beliefs That Will Affect Care: None marital status: / Current Living Situation: Alone current occupational status: retired Feels Safe at Home: Yes Childhood Exposure to Second-Hand Smoke: Yes Diet: regular Dental Care, Regularly: Yes Physical Activity Frequency: Does not Exercise Seatbelt Use: always Sunscreen Use: Yes Assistive Devices: Cane and Walker Allergies Allergies Allergy/AdvReac Type Severity Reaction Status Date / Time venom-honey bee Allergy Severe Unknown Verified 04/21/24 13:43 Sulfa (Sulfonamide Allergy Unknown Unknown Verified 04/21/24 13:43 Antibiotics) [place] POWD Allergy Unknown Uncoded 04/21/24 13:43 Home Meds Home Medications Medication Instructions Recorded Confirmed estradiol 0.025 mg/24 hr weekly 1 patch transdermal WK 05/20/19 06/07/24 transdermal patch fexofenadine 180 mg tablet 180 mg PO DAILY PRN allergy 05/20/19 06/07/24 symptoms #30 tabs fluticasone propionate 50 1 - 2 sprays intranasal DAILY PRN 05/20/19 06/07/24 mcg/actuation nasal allergy symptoms #1 g spray,suspension multivitamin (Super Multivitamin 1 tab PO DAILY 04/29/22 06/07/24 tablet) vitamin B complex 1 tab PO DAILY 03/28/24 06/07/24 Previous Rx's Medication Instructions Recorded epinephrine 0.3 mg/0.3 mL 0.3 mg (0.3 mL) IM PRN #2 ea 04/29/22 injection, auto-injector coenzyme Q10 100 mg capsule 100 mg PO DAILY #30 caps 12/12/22 (CoQ-10) ibuprofen 600 mg tablet 600 mg PO BID #180 tabs 03/02/24 carbidopa ER 50 mg-levodopa 200 mg 1 tab PO QID #360 tabs 04/21/24 tablet,extended release Results & Data (ED) Vital Signs Vital Signs - 24 hr 06/07/24 15:59 06/07/24 16:14 06/07/24 16:14 Temperature 36.6 C Temperature Source Temporal Artery Scan Pulse Rate 91 H Pulse Rate [Apical] 91 H Pulse Rate from SpO2 Sensor Respiratory Rate 20 20 Respiratory Effort / Characteristics Non-Labored Non-Labored Respiratory Depth Normal Normal Blood Pressure 165/99 H Blood Pressure [Right Arm] 165/99 H Blood Pressure Mean 121 Blood Pressure Mean [Right Arm] 121 Pulse Oximetry 98 98 98 Oxygen Delivery Method Room Air Room Air Room Air Sepsis Recent Fever Within 48 Hours No Sepsis New/Unexplained Change in Mental Status No Sepsis Action Taken by Nursing No Action Required 06/07/24 17:32 06/07/24 19:28 06/07/24 19:30 Temperature Temperature Source Pulse Rate 79 91 H Pulse Rate [Apical] 95 H Pulse Rate from SpO2 Sensor 91 H Respiratory Rate 20 18 Respiratory Effort / Characteristics Non-Labored Respiratory Depth Normal Blood Pressure 144/97 H Blood Pressure [Right Arm] 159/97 H Blood Pressure Mean 112 Blood Pressure Mean [Right Arm] 117 Pulse Oximetry 97 96 Oxygen Delivery Method Room Air Room Air Sepsis Recent Fever Within 48 Hours Sepsis New/Unexplained Change in Mental Status Sepsis Action Taken by Nursing 06/07/24 20:00 06/07/24 20:07 Temperature 36.9 C Temperature Source Oral Pulse Rate 87 Pulse Rate [Apical] Pulse Rate from SpO2 Sensor 87 Respiratory Rate 22 Respiratory Effort / Characteristics Respiratory Depth Blood Pressure 102/83 Blood Pressure [Right Arm] Blood Pressure Mean 89 Blood Pressure Mean [Right Arm] Pulse Oximetry 96 Oxygen Delivery Method Room Air Sepsis Recent Fever Within 48 Hours Sepsis New/Unexplained Change in Mental Status Sepsis Action Taken by Long Term Medications Current Medication List: was personally reviewed by me Laboratory Data Attestation: I reviewed the patient's lab results. 06/07/24 16:14 06/07/24 16:14 Lab Results 06/07/24 06/07/24 Range/Units 16:14 16:54 WBC 8.91 (4.8-10.8) K/ul RBC 4.20 (4.20-5.40) M/uL Hgb 13.1 (12.0-16.0) g/dl Hct 38.7 (37.0-47.0) % MCV 92.1 (80.0-100.0) fL MCH 31.2 (25.0-34.0) pg MCHC 33.9 (32.0-36.0) g/dL RDW Std Deviation 45.9 (36.4-46.3) fL RDW Coeff of Scott 13.4 (11.5-14.5) % Plt Count 353 (130-400) K/uL MPV 9.2 L (9.4-12.4) fL Immature Gran % (Auto) 0.1 % Neut % (Auto) 77.6 % Lymph % (Auto) 13.9 % [place] % (Auto) 7.4 % Eos % (Auto) 0.7 % Baso % (Auto) 0.3 % Neut # (Auto) 6.91 H (1.40-6.50) K/uL Lymph # (Auto) 1.24 (1.20-3.40) K/uL [place] # (Auto) 0.66 H (0.11-0.59) K/uL Eos # (Auto) 0.06 (0.00-0.50) K/uL Baso # (Auto) 0.03 (0.00-0.20) K/uL Immature Gran # (Auto) 0.01 (0.01-0.20) K/uL Sodium 139 (136-145) mmol/L Potassium 3.7 (3.5-5.1) mmol/L Chloride 106 (98-107) mmol/L Carbon Dioxide 26 (21-32) mmol/L Anion Gap 7 (3-11) BUN 28 H (6-23) mg/dl Creatinine 0.62 (0.6-1.2) mg/dl Est Cr Clr Drug Dosing 50.6 ml/min eGFR 86.14 BUN/Creatinine Ratio 45.2 H (10-20) Glucose 115 H (70-99(Fasting)) mg/dl Calcium 8.8 (8.6-10.3) mg/dl Magnesium 1.9 (1.7-2.4) mg/dl Total Bilirubin 0.6 (0.2-1.0) mg/dl AST 19 (13-39) U/L ALT 13 (7-52) U/L Alkaline Phosphatase 55 (34-104) U/L Total Protein 5.9 L (6.0-8.3) gm/dl Albumin 3.6 (3.4-5.0) gm/dl Globulin 2.3 L (2.5-4.0) gm/dl Albumin/Globulin Ratio 1.6 (0.9-2) Urine Color Yellow Urine Appearance Clear (Clear) Urine pH 6.0 (4.5-7.5) Ur Specific [place] 1.011 (1.000-1.030) Urine Protein Negative (Negative) Urine Glucose (UA) Negative (Negative) Urine Ketones Negative (Negative) Urine Blood Negative (Negative) Urine Nitrite Negative (Negative) Urine Bilirubin Negative (Negative) Urine Urobilinogen Negative (Negative) Ur Leukocyte Esterase Negative (Negative) SARS-CoV-2, RNA, NAAT NEGATIVE (NEGATIVE) Administered Medications Discontinued Medications Carbidopa/Levodopa (Carbidopa/Levodopa 50/200mg Ext Rel Tab) 1 tab PO NOW STA Stop: 06/07/24 19:13 Last Admin: 06/07/24 19:51 Dose: 1 tab Documented By: JAIRON Imaging Data Radiologist's Impression: Knee X-Ray 06/07/24 15:58 EXAM: Radiographs of the Left Knee 3 Views INDICATION: Trauma. TECHNIQUE: Three views of the left knee. COMPARISON: No relevant prior studies available. FINDINGS: Bones/joints: There is mild spurring and subchondral cystic change of the patellofemoral joint. There is mild medial joint line spurring. There is no fracture or erosion. Soft tissues: No abnormality noted. No radiopaque foreign body noted. Vasculature: Atherosclerotic calcification noted in the thigh and calf. IMPRESSION: Mild patellofemoral osteoarthritis. No acute disease. ACT 112: Negative or not required by law. Electronically signed by Ada Patel 06-07-2024 4:54 PM Discharge Plan Visit Data Chief Complaint: Knee Injury/Pain Stated Complaint: L KNEE PAIN ED Provider: Jaime Carrillo Discharge Problem: Weakness, Debilitated, Left knee pain Patient Disposition: Admitted As Inpatient Condition: Good Discharge Instructions Interventions: ED Discharge Assessment Last Done: 06/07/24 20:07 Forms Stand Alone Forms: My [employer] Prescriptions Prescriptions: No Action ibuprofen 600 mg tablet 600 mg PO BID Qty: 180 1RF Rx Instructions: Never take on an empty stomach and be sure to drink plenty of water estradiol 0.025 mg/24 hr patch weekly 1 patch TD WK fexofenadine 180 mg tablet 180 mg PO DAILY PRN (Reason: allergy symptoms) Qty: 30 Rx Instructions: Unable to verify OTC meds at this date/time. fluticasone propionate 50 mcg/actuation spray,suspension 1 - 2 sprays intranasal DAILY PRN (Reason: allergy symptoms) Qty: 1 Rx Instructions: Unable to verify OTC meds at this date/time. multivitamin [Super Multivitamin] Tablet 1 tab PO DAILY Rx Instructions: Unable to verify OTC meds at this date/time. epinephrine 0.3 mg/0.3 mL auto-injector 0.3 mg IM PRN Qty: 2 3RF coenzyme Q10 [CoQ-10] 100 mg capsule 100 mg PO DAILY Qty: 30 0RF Rx Instructions: Unable to verify OTC meds at this date/time. carbidopa-levodopa 50-200 mg tablet extended release 1 tab PO QID Qty: 360 1RF Rx Instructions: divide evenly over waking hours vitamin B complex Tablet 1 tab PO DAILY Rx Instructions: Unable to verify OTC meds at this date/time. Referrals Referrals: Reggie Lubin MD [Primary Care Provider] - Discharge Problem: Left knee pain Qualifiers: Chronicity: acute Qualified Code(s): M25.562 - Pain in left knee
[2024-06-07 16:32] LABS: Basophils # (auto) 0.03 K/uL (0.00-0.20); Basophils % (auto) 0.3 %; Eosinophils # (auto) 0.06 K/uL (0.00-0.50); Eosinophils % (auto) 0.7 %; Hematocrit (blood only) 38.7 % (37.0-47.0); Hemoglobin 13.1 g/dl (12.0-16.0); Immature Granulocytes # (auto) 0.01 K/uL (0.01-0.20); Immature Granulocytes % (auto) 0.1 %; Lymphocytes # (auto) 1.24 K/uL (1.20-3.40); Lymphocytes % (auto) 13.9 %; Mean Corpuscular Hemoglobin 31.2 pg (25.0-34.0); Mean Corpuscular Hgb Conc 33.9 g/dL (32.0-36.0); Mean Corpuscular Volume 92.1 fL (80.0-100.0); Mean Platelet Volume 9.2 fL (9.4-12.4); Monocytes # (auto) 0.66 K/uL (0.11-0.59); Monocytes % (auto) 7.4 %; Neutrophils # (auto) 6.91 K/uL (1.40-6.50); Neutrophils % (auto) 77.6 %; Platelet Count 353 K/uL (130-400); RDW Coefficient of Variation 13.4 % (11.5-14.5); RDW Standard Deviation 45.9 fL (36.4-46.3); White Blood Count 8.91 K/ul (4.8-10.8)
[2024-06-07 16:43] LABS: Albumin Globulin Ratio 1.6 (0.9-2); Albumin Level 3.6 gm/dl (3.4-5.0); BUN Creatinine Ratio 45.2 (10-20); Bilirubin,Total 0.6 mg/dl (0.2-1.0); Calcium 8.8 mg/dl (8.6-10.3); Creatinine Clr Calc Pharmacy 50.6 ml/min; Globulin 2.3 gm/dl (2.5-4.0); Magnesium 1.9 mg/dl (1.7-2.4); Potassium 3.7 mmol/L (3.5-5.1); Total Protein 5.9 gm/dl (6.0-8.3)
--- NOTE | 2024-06-07 16:54 | XRay Report ---
EXAM: Radiographs of the Left Knee 3 Views INDICATION: Trauma. TECHNIQUE: Three views of the left knee. COMPARISON: No relevant prior studies available. FINDINGS: Bones/joints: There is mild spurring and subchondral cystic change of the patellofemoral joint. There is mild medial joint line spurring. There is no fracture or erosion. Soft tissues: No abnormality noted. No radiopaque foreign body noted. Vasculature: Atherosclerotic calcification noted in the thigh and calf. IMPRESSION: Mild patellofemoral osteoarthritis. No acute disease. ACT 112: Negative or not required by law. Electronically signed by Ada Patel 06-07-2024 4:54 PM
[2024-06-07 17:03] LABS: Appearance Urine Clear (Clear); Bilirubin Urine Negative (Negative); Blood Urine Negative (Negative); Color Urine Yellow; Glucose Urine UA Negative (Negative); Ketones Urine Negative (Negative); Leukocyte Esterase Urine Negative (Negative); Nitrite Urine Negative (Negative); Protein Urine Negative (Negative); Specific Gravity Urine 1.011 (1.000-1.030); Urobilinogen Urine Negative (Negative)
--- NOTE | 2024-06-07 17:30 | History & Physical Report ---
Date of Service June 07, 2024 Assessment & Plan (1) Ambulatory dysfunction: Plan: Patient reportedly pulled her left knee during a PT session on 06/03 While she was able to ambulate over the weekend, she developed acute onset of ambulatory dysfunction on Thursday 06/07 Patient planning to go to [facility] rehab, however she is unable to get in on 06/07 but was told she would have a room available on Friday 06/08 Plan is for discharge to [facility] on 06/08 Case management consulted for routine discharge planning PT/OT evaluations appreciated Fall precautions (2) Dehydration: Plan: Patient appears clinically dry on exam Elevated BUN/creatinine ratio at 45.2 Encourage p.o. fluids in the setting of IVF national shortage (3) Left knee injury: Plan: Patient reports this is only when bearing weight on the left leg/twisting Continue ibuprofen 600 mg p.o. BID Rotate in acetaminophen as needed for breakthrough pain (4) Parkinsonism: Plan: Continue Sinemet QID Plan Disposition: Obs -admit to MedSurg DNR/DNI Regular diet VTE PPx: Teds History of Present Illness Chief Complaint: Ambulatory dysfunction Primary Care Provider: Reggie Lubin MD Mildred is an 89-year-old female with PMH of parkinsonism, HLD, hypothyroidism, sciatic pain, and balance disorder. She presented via EMS on 06/07 for ambulatory dysfunction. Patient lives alone. Daughter at bedside provides additional history: Patient was reportedly ambulating fine last night around 5 PM, then when daughter went to the house around 1030 this morning, patient reports she could not ambulate. Patient does believe she tweaked the medial aspect of her left knee during physical therapy last 06/03. She has been ambulating with her rollator without difficulty over the weekend, but reports that last night things "fell apart". She reports she was barely able to move, and cannot bear weight on her left leg. She denies any new/recent injuries to the left leg. She denies any recent falls falls. Daughter reports that she called in [facility] today, but there was not a bed available until tomorrow, and she was told go to the ED if concern for ambulatory dysfunction. Patient reports she took her regular morning medicine today; no recent change in medications. Patient manages her own medicine at home. She reports she has been taking ibuprofen as needed for the left knee pain, but reports no pain at present (only with bearing weight and twisting her knee). She normally takes ibuprofen 6 mg twice daily, but she has been taking it 3 times daily as needed for pain. She denies smoking, tobacco use, recent alcohol use. Additionally, she reports that she does have poor oral intake recently, which could be due to ambulatory dysfunction. She believes dehydration could be playing a role in her ambulatory dysfunction, and reports she is feeling much better after drinking water in the ED. Patient is mildly hypertensive at 165/99 at time of admission; vitals otherwise stable. ED course: ROS: Patient endorses left leg pain with bearing weight/twisting, ambulatory dysfunction, and chronic cough. Patient denies fever, chills, night sweats, dizziness, lightheadedness, headache, chest pain, chest palpitations, SOB, cough, abdominal pain, N/V/D, changes in urinary or bowel habits, blood in the urine or stool, burning with urination, or numbness/tingling in the left leg. Allergies Allergy/AdvReac Type Severity Reaction Status Date / Time venom-honey bee Allergy Severe Unknown Verified 04/21/24 13:43 Sulfa (Sulfonamide Allergy Unknown Unknown Verified 04/21/24 13:43 Antibiotics) [place] POWD Allergy Unknown Uncoded 04/21/24 13:43 Home Medications Medication Instructions Recorded Confirmed Type estradiol 0.025 mg/24 hr weekly 1 patch transdermal WK 05/20/19 06/07/24 History transdermal patch fexofenadine 180 mg tablet 180 mg PO DAILY PRN allergy 05/20/19 06/07/24 History symptoms #30 tabs fluticasone propionate 50 1 - 2 sprays intranasal DAILY PRN 05/20/19 06/07/24 History mcg/actuation nasal allergy symptoms #1 g spray,suspension epinephrine 0.3 mg/0.3 mL 0.3 mg (0.3 mL) IM PRN #2 ea 04/29/22 06/07/24 Rx injection, auto-injector multivitamin (Super Multivitamin 1 tab PO DAILY 04/29/22 06/07/24 History tablet) coenzyme Q10 100 mg capsule 100 mg PO DAILY #30 caps 12/12/22 06/07/24 Rx (CoQ-10) ibuprofen 600 mg tablet 600 mg PO BID #180 tabs 03/02/24 06/07/24 Rx vitamin B complex 1 tab PO DAILY 03/28/24 06/07/24 History carbidopa ER 50 mg-levodopa 200 mg 1 tab PO QID #360 tabs 04/21/24 06/07/24 Rx tablet,extended release Past Med/Surg History Problem List Left knee pain (Acute) Debilitated (Acute) Weakness (Acute) Left knee injury Dehydration Ambulatory dysfunction (Acute) Generalized weakness (Acute) Balance disorder Sciatic pain Medicare annual wellness visit, subsequent Psoas muscle strain Parkinsonism Generalized osteoarthritis of multiple sites (Acute) Hyperlipidemia (Acute) Hypothyroidism (Acute) Osteopenia (Acute) Prediabetes (Acute) Venous insufficiency (Acute) Vitamin D deficiency (Acute) Medical History Achilles tendinitis Surgical History No history of previous surgery Family History Sister , age 87 (twin). Colorectal cancer Myocardial infarction Dementia Grandmother (Maternal) Rheumatoid arthritis Father Emphysema, unspecified Denies family history of Ovarian cancer Prostate cancer Breast cancer Social History Smoking Status: Never smoker Second Hand Exposure: No; Do You Dip or Chew Tobacco: No; Tobacco Cessation Education Requested by Patient: No Hx Alcohol Use: No Hx Substance Use: No Preferred Language: Divehi Communication Ability: Effective Visual Impairment: Limited Hearing Ability: Normal Police Magistrate Required: No Beliefs That Will Affect Care: None marital status: / Current Living Situation: Alone current occupational status: retired Other Information That Helps Us Care for You: No Feels Safe at Home: Yes Safety Concerns: Feels Safe At This Time Childhood Exposure to Second-Hand Smoke: Yes Diet: regular Dental Care, Regularly: Yes Physical Activity Frequency: Does not Exercise Seatbelt Use: always Sunscreen Use: Yes Assistive Devices: Cane and Walker Review of Systems Review of Systems: See HPI above Physical Exam Physical Exam: General: no acute distress; daughter at bedside; non-toxic appearing; frail appearing; cooperative; SpO2 97% on RA HEENT: normocephalic, atraumatic; no scleral icterus; PERRLA; vision and hearing intact Neck: supple; no lymphadenopathy; trachea midline Skin: warm, dry without signs of tenting; no cyanosis; no rashes, bruising, lesions, or erythema noted CV: chest wall NTP; RRR; S1/S2 normal; no murmurs/rubs/gallops; pulses intact and symmetric at radial, DP, and PT Lungs: no acute respiratory distress; symmetrical chest wall expansion; clear breath sounds across all lung fonseca w/o adventitious sounds; no wheezing ABD: Soft, NTP; BS present; no rebound/guarding; no distention MSK: no tics or fasciculations appreciated; nonpitting edema noted in the LEs b/l, nonerythematous; patient demonstrates ability to wiggle toes and lift legs with 4/5 strength bilaterally; full active ROM of the left knee (patient is able to bend at 45 degrees without eliciting pain) Neuro: A&Ox3; normal mood and affect; fluent speech; no focal deficits; patient reports that sensation is intact and symmetric in lower extremities bilaterally Results & Data Results & Data Vital Signs (Past 12 Hours) Vital Signs Temp Pulse Pulse Resp BP BP Pulse Ox 06/07/24 16:14 98 06/07/24 16:14 91 H 20 165/99 H 98 06/07/24 15:59 36.6 C 91 H 20 165/99 H 98 O2 Del Method 06/07/24 16:14 Room Air 06/07/24 16:14 Room Air 06/07/24 15:59 Room Air Laboratory Results Abnormal lab results 06/07/24 Range/Units 16:14 MPV 9.2 L (9.4-12.4) fL Neut # (Auto) 6.91 H (1.40-6.50) K/uL [place]ona # (Auto) 0.66 H (0.11-0.59) K/uL BUN 28 H (6-23) mg/dl BUN/Creatinine Ratio 45.2 H (10-20) Glucose 115 H (70-99(Fasting)) mg/dl Total Protein 5.9 L (6.0-8.3) gm/dl Globulin 2.3 L (2.5-4.0) gm/dl Diagnostic Findings Knee X-Ray 06/07/24 15:58 EXAM: Radiographs of the Left Knee 3 Views INDICATION: Trauma. TECHNIQUE: Three views of the left knee. COMPARISON: No relevant prior studies available. FINDINGS: Bones/joints: There is mild spurring and subchondral cystic change of the patellofemoral joint. There is mild medial joint line spurring. There is no fracture or erosion. Soft tissues: No abnormality noted. No radiopaque foreign body noted. Vasculature: Atherosclerotic calcification noted in the thigh and calf. IMPRESSION: Mild patellofemoral osteoarthritis. No acute disease. ACT 112: Negative or not required by law. Electronically signed by Ada Patel 06-07-2024 4:54 PM ECG Additional Comments: ECG revealed NSR at 85 bpm; QTc 460 Code Status & VTE Plan Code Status DNR/DNI (discussed with patient and patient's daughter/POA at bedside) VTE Prophylaxis Plan VTE Prophylaxis will be ordered: Yes Supervising Physician Co-Signing Physician Notes I personally saw and examined the patient. I independently reviewed the labs, EKG, imaging, problem list, medication list, past medical history and family history. I verified all scott points and agree with Marquis Perez PA-C with the following exceptions and/or additions: 89 year old female presents to the ER with ambulatory dysfunction. She reports some confusion with her sinemet coming from [place]. Feels much better than when she was admitted earlier and questions whether she needs to go to rehab. O/E Thin appearing, HS RRR, no murmurs, Chest CTAB, Abdo SNT, no left knee pain on palpation of joint lines, flexion/extension of knee 5/5 A/P Ambulatory dysfunction - similar story to back in March. Unclear if Danyellemet is helping but she has an appointment now in the movement disorder clinic in June. No changes made by neurology last admission. She reports her weakness has already improved. No radicular pains. Just intermittent weakness. Planning on discharge to [facility] for rehabilitation pending PT/OT assessments here. PG Care Time/CCT Total # of Minutes Spent Total Time Spent with Patient: Total time spent is greater than 50% in coordination of care (as documented) at patient's floor/unit and/or counseling patient: C[place] [address] INT INP/OBS CARE 2/55MIN Patient Type Established Medical Decision Making Moderate Complexity Diagnoses Ambulatory dysfunction R26.2 Dehydration E86.0 Left knee injury S89.92XA Parkinsonism G20
[2024-06-07] MEDS: CARBIDOPA/LEVODOPA 50/200MG EXT REL TAB PO STA (19:51)
[2024-06-07] MEDS ORDERED: FEXOFENADINE HCL 180 MG TAB PO PRN (20:26)
[2024-06-07] MEDS ORDERED: ACETAMINOPHEN 325 MG TAB PO PRN (20:26)
[2024-06-07] MEDS ORDERED: FLUTICASONE PROPIONATE NA SPR 16 GM BTL PRN (20:26)
[2024-06-07] MEDS ORDERED: MELATONIN 3 MG TAB PO PRN (20:26)
[2024-06-07 20:56] VITALS: TEMP 97.5
[2024-06-07] MEDS: IBUPROFEN 600 MG TAB PO SCH (21:27)
[2024-06-07] MEDS: CARBIDOPA/LEVODOPA 50/200MG EXT REL TAB PO SCH (23:34)
--- OUTSIDE RECORDS SUMMARY | 2024-06-08 06:10 | External Medical Summary | Summary of Care ---
Author Name Unknown Organization [facility] Address [address] [place] [address] Phone [phone] Care Team Providers Care Laundry Machine Operator Name Role Phone Pro, Reggie Parr MD Primary Care Provider [phone]- [phone] Encounter Details Date Type Department Care Team (Latest Contact Info) Description 10/16/2020 1:45 PM EDT - 10/16/2020 11:59 PM EDT Hospital Encounter Radiology Film File [address] [place] [address] Discharge Disposition: Home - Self Care Allergies Active Allergy Reactions Criticality Noted Date Comments Bee Venom 07/02/2010 [place] Hives 06/29/2015 Other Allergy (See Comments) 012 Annatto food dye Red Dye #40 (Allura Red) 04/14/2013 Sulfa Antibiotics 01/29/2000 fever Yellow Dye 06/05/2000 documented as of this encounter (statuses as of 05/29/2024) Medications SYNTHROID 100 MCG OR TABS 1 TABLET DAILY 0 0 5 Active FISH OIL 1000 MG PO CAPS None Entered Active ASTEPRO 0.15 % NA SOLN 2 sprays in each nostril daily Active CO Q-10 100 MG PO CAPS two capsule Active VITAMIN C 500 MG PO TABS One tablet daily Ac tive Cholecalciferol (VITAMIN D) 1000 UNITS Tablet Take 1 Tablet by mouth in the morning. Active Multiple Minerals-Vitami ns (CALCIUM CITRATE PLUS/MAGNESIUM) TABS Take by mouth. Activ e carbidopa-levod opa CR 50-200 mg per tab (SINEMET CR) 50-200 MG TBCR 9 Active polyethylene glycol 3350 (MIRALAX) packet Take 1 Packet by mouth in the morning. Active Progesterone Micronized 200 MG Oral Capsule (PROMETRIUM)Ind ications:Postme nopause TAKE 1 CAPSULE DAILY DAYS 1 THROUGH 12 EACH MONTH 36 Cap 3 0 Active Additional Information Patient not taking.Reported on 02/19/2022 documented as of this encounter (statuses as of 05/29/2024) Active Problems Problem Noted Date Diagnosed Date NONSPECIFIC ABN PAP SMEAR OF CERVIX,UNSPEC - end o 12/02/2007 Need for prophylactic hormon e replacement therapy (postmenopausal) 03/23/2003 Menopause Family history of colon cancer Dyslipidemia, goal to be determined Allergic rhinitis documented as of this encounter (statuses as of 05/29/2024) Resolved Problems Problem Noted Date Diagnosed Date Resolved Date Goiter 05/08/2004 Overview (05/08/2004): Pt states never had goiter - her sisiter has a goiter documented as of this encounter (statuses as of 05/29/2024) Immunizations Name Administration Dates Next Due COVID-19 mRNA, LNP-s, No Pre serve, 2-Dose Series ([employer]) 09/03/2020,08/09/2020 SARS-COV-2 (COVID-19) Vaccine Unspecified 2020 documented as of this encounter Social History Tobacco Use Types Packs/Day Years Used Date Smoking Tobacco: Never Smokeless Tobacco: Never Alcohol Use Standard Drinks/Week Comments Yes 0 (1 standard drink = 0.6 oz pur e alcohol) 2glasses/day PHQ-2 Answer Date Recorded PHQ-2 Score -1 03/22/2019 Hunger Vital Sign Answer Date Recorded Within the past 12 months, y ou worried that your food would run out before you got the money to buy more. Never true 05/20/20 24 Within the past 12 months, t he food you bought just didn't last and you didn't have money to get more. Never true 05/20/2024 Childcare Answer Date Recorded Do you feel overwhelmed with taking care of a child, family member or friend? No 05/20/2024 Does your family need help f inding childcare? (Household - for ages 0-17 years) Not on file 05/20/2024 Clothing Answer Date Recorded Have you been unable to get clothing when it was really needed? No 05/20/2024 Is your family able to get c lothes or diapers when needed? (Household - for ages 0-17 years) Not on file 05/20/2024 Personal Safety Answer Date Recorded Do you feel unsafe or have concerns for your saf ety? No 05/20/2024 Do you have concerns for you r family's safety? (Household - for ages 0-17 years) Not on file 05/20/2024 Utilities Answer Date Recorded Do you have trouble paying y our heating, water, or electric bill? No 05/20/2024 Is your family able to pay t he heat, water, or electric bill? (Household - for ages 0-17 years) Not on file 05/20/2024 Does your family have access to good internet? (Household - for ages 0-17 years) Not on file 05/20/2024 Employment Status Answer Date Recorded Are you unemployed or without regular income? No 05/20/2024 Does the household have a re gular source of income? (Household - for ages 0-17 years) Not on file 05/20/2024 Social Connections Answer Date Recorded How often do you feel lonely or isolated from those around you? Sometimes 05/20/2024 Financial Resource Strain Answer Date R ecorded Do you have any trouble payi ng for your medications, or do you think you might in the future? No 05/20/2024 Does your family have troubl e paying for medicine? (Household - for ages 0-17 years) Not on file 05/20/2024 Transportation Needs Answer Date Record ed Do you have trouble getting a ride to medical visits or work? (Adult - for ages 18 years and over) Not on file 05/20/2024 Does your family have a hard time getting a ride to doctors visits? (Household - for ages 0-17 years) Not on file 05/20/2024 Has lack of transportation k ept you from medical appointments, meetings, work, or from getting things needed for daily living? Check all that apply. No 05/20/2024 Do you (or your family) have trouble finding or paying for a ride (transportation)? (Household - for ages 0-17 years) Not on file 05/20/2024 Housing Stability Answer Date Recorded Do you currently live in a s helter or have no steady place to sleep at night? No 05/20/2024 Do you think you are at risk of becoming homeless? (Adult - for ages 18 years and over) Not on file 05/20/2024 Does your family worry about paying for your home or becoming homeless? (Household - for ages 0-17 years) Not on file 1 Are you homeless or worried that you might be in the future? No 05/20/2024 Are you (or your family) kulwant eless or worried that you might be in the future? (Household - for ages 0-17 years) Not on file Food Insecurity Answer Date Recorded Do you need food for this week? No 05/20/2024 Are you able to get enough f ood for your family? (Household - for ages 0-17 years) Not on file 05/20/2024 Does your family need food t his week? (Household - for ages 0-17 years) Not on file 05/20/2024 Do you always have enough fo od for your family? 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 on file Not on file Not on file documented as of this encounter Plan of Treatment Health Maintenance Due Date Last Done Comments TSH 12/27/2010 12/27/2009, 02/12/2000 Depression Screening 03/16/2020 03/16/2019 Zoster Vaccines (3 of 3) 04/25/2021 02/28/2021, 07/2008 COVID-19 Vaccine ( season) 2024 05/17/2022, 11/07/2021, 11/07/2021, Additional history exists Influenza Vaccine (FLU shot) (#1) 2024 07/09/2023, 03/26/2022, 05/13/2020, Additional history exists DTap/Tdap Vaccines (2 - Td or Tdap) 11/28/2024 11/28/2014 DXA Scan 04/14/2030 04/14/2023, 03/22, 04/05/2019, Additional history exists Pneumococcal Vaccine: 65+ Years Completed 06/08/2014, 07/21/2003 HPV (Gardasil) Vaccine Aged Out No lo nger eligible based on patient's age to complete this topic Hepatitis B Vaccine Aged Out No longe r eligible based on patient's age to complete this topic MENINGOCOCCAL (MENACTRA/MENVEO) Aged Out No longer eligible based on patient's age to complete this topic documented as of this encounter Medical Devices Not on filedocumented as of this encounter Procedures Procedure Name Priority Date/Time Associated Diagnosis Comments RADIOLOGY EXAM - MAMMOGRAPHY (IMAGES ONLY, NO REPORT) Routine 10/16/2020 1:45 PM EDT documented in this encounter Results * RADIOLOGY EXAM - MAMMOGRAPHY (IMAGES ONLY, NO REPORT) (10/16/2020 1:45 PM EDT) 10/16/2020 1:42 PM EDT Narrative Scheduling, Silent - 05/28/2024 1:14 PM EST This is an imaging study not interpreted or resulted by a [facility] or [facility] contracted radiologist. Precious JENKINS RAD MAMMOGRAPHY Final Result documented in this encounter Care Teams Laundry Machine Operator Relationship Specialty Start Date End Date Pro, Reggie Parr MD [address] [place] [address] PCP - General Internal Medicine 04/05/19 documented as of this encounter
--- OUTSIDE RECORDS SUMMARY | 2024-06-08 06:11 | External Medical Summary | Summary of Care ---
Author Name Unknown Organization [facility] Address [address] [place] [address] Phone [phone] Care Team Providers Care Chair Spring Assembler Name Role Phone Pro, Reggie Parr MD Primary Care Provider [phone]- [phone] Encounter Details Date Type Department Care Team (Latest Contact Info) Description 03/25/2019 12:05 PM EDT - 03/25/2019 11:59 PM EDT Hospital Encounter Radiology Film File [address] [place] [address] Discharge Disposition: Home - Self Care Allergies Active Allergy Reactions Criticality Noted Date Comments Bee Venom 07/02/2010 [place] Hives 06/29/2015 Other Allergy (See Comments) 012 Annatto food dye Red Dye #40 (Allura Red) 04/14/2013 Sulfa Antibiotics 01/29/2000 fever Yellow Dye 06/05/2000 documented as of this encounter (statuses as of 05/29/2024) Medications SYNTHROID 100 MCG OR TABS 1 TABLET DAILY 0 0 07/03/2005 Active FISH OIL 1000 MG PO CAPS None Entered Active ASTEPRO 0.15 % NA SOLN 2 sprays in each nostril daily Active CO Q-10 100 MG PO CAPS two capsule Active VITAMIN C 500 MG PO TABS One tablet daily Active Cholecalciferol (VITAMIN D) 1000 UNITS Tablet Take 1 Tablet by mouth in the morning. Active Multiple Minerals-Vitami ns (CALCIUM CITRATE PLUS/MAGNESIUM) TABS Take by mouth. Active documented as of this encounter (statuses as [...] this encounter (statuses as of 05/29/2024) Immunizations No known immunizationsdocumented as of this encounter Social History Tobacco [...] - MAMMOGRAPHY (IMAGES ONLY, NO REPORT) Routine 03/25/2019 12:05 PM EDT documented in this encounter Results * RADIOLOGY EXAM - MAMMOGRAPHY (IMAGES ONLY, NO REPORT) (03/25/2019 12:05 PM EDT) 03/25/2019 12:0 1 PM EDT Narrative Scheduling, Silent - 05/28/2024 1:16 PM EST This is an imaging study not interpreted or resulted by a [facility] or [facility] radiologist. us Precious Singh FORECLOSURE PARALEGAL RAD MAMMOGRAPHY Final Result documented in this encounter Care Teams Chair Spring Assembler Relationship Specialty Start Date End Date Pro, Reggie Parr MD PCP - General Internal Medicine 03/05/17 04/04/19 documented as of this encounter
--- OUTSIDE RECORDS SUMMARY | 2024-06-08 06:11 | External Medical Summary | Summary of Care ---
Author Name Unknown Organization [facility] Address [address] [place] [address] Phone [phone] Care Team Providers Care Grinder Set Up Operator Gear Tool Name Role Phone Pro, Reggie Parr MD Primary Care Provider [phone]- [phone] Encounter Details Date Type Department Care Team (Latest Contact Info) Description 02/26/2018 1:15 PM EDT - 02/26/2018 11:59 PM EDT Hospital Encounter Radiology Film File [address] [place] [address] Discharge Disposition: Home - Self Care Allergies Active Allergy Reactions Criticality Noted Date Comments Bee Venom 07/02/2010 [place] Hives 06/29/2015 Other Allergy (See Comments) 012 [...] - MAMMOGRAPHY (IMAGES ONLY, NO REPORT) Routine 02/26/2018 1:15 PM EDT documented in this encounter Results * RADIOLOGY EXAM - MAMMOGRAPHY (IMAGES ONLY, NO REPORT) (02/26/2018 1:15 PM EDT) 02/26/2018 1:12 PM EDT Narrative Scheduling, Silent - 05/28/2024 1:18 PM EST This is an imaging study not interpreted or resulted by a [facility] or [facility] contracted radiologist. us Precious Singh WIRE STOCKKEEPER RAD MAMMOGRAPHY Final Result documented in this encounter Care Teams Grinder Set Up Operator Gear Tool Relationship Specialty Start Date End Date Pro, Reggie Parr MD PCP - General Internal Medicine 03/05/17 04/04/19 documented as of this encounter
--- OUTSIDE RECORDS SUMMARY | 2024-06-08 06:11 | External Medical Summary | Summary of Care ---
Author Name Unknown Organization [facility] Address [address] [place] [address] Phone [phone] Care Team Providers Care Nursing Director Name Role Phone Pro, Reggie Parr MD Primary Care Provider [phone]- [phone] Encounter Details Date Type Department Care Team (Latest Contact Info) Description 01/28/2023 2:15 PM EDT - 01/28/2023 11:59 PM EDT Hospital Encounter Radiology Film File [address] [place] [address] Discharge Disposition: Home - Self Care Allergies Active Allergy Reactions Criticality Noted Date Comments Bee Venom 07/02/2010 [place] Hives 06/29/2015 Other Allergy (See Comments) 012 [...] Additional Information Patient not taking.Reported on 02/19/2022 Magnesium 100 MG Oral Tablet Take 1 Tablet by mouth in the morning. Active documented as of this encounter (statuses [...] mRNA, LNP-s, No Pre serve, 2-Dose Series ([employer]) 09/03/2020,08/09/2020 Covid-19, Mrna, Lnp-s, Pf, B ivalent, 30 Mcg, IM, 12 yrs and above ([employer]) 05/17/2022 SARS-COV-2 (COVID-19) Vaccine Unspecified 2021,04/23/2021,08/30/2020 documented as of this encounter Social History [...] - MAMMOGRAPHY (IMAGES ONLY, NO REPORT) Routine 01/28/2023 2:15 PM EDT documented in this encounter Results * RADIOLOGY EXAM - MAMMOGRAPHY (IMAGES ONLY, NO REPORT) (01/28/2023 2:15 PM EDT) 01/28/2023 2:14 PM EDT Narrative Scheduling, Silent - 05/28/2024 2:06 PM EST This is an imaging study not interpreted or resulted by a [facility] or [facility] contracted radiologist. us Precious JENKINS RAD MAMMOGRAPHY Final Result documented in this encounter Care Teams Nursing Director Relationship Specialty Start Date End Date Pro, Reggie Parr MD [address] [place] [address] PCP - General Internal Medicine 04/05/19 documented as of this encounter
--- OUTSIDE RECORDS SUMMARY | 2024-06-08 06:11 | External Medical Summary | Summary of Care ---
Author Name Unknown Organization [facility] Address [address] [place] [address] Phone [phone] Care Team Providers Care Strapper Operator Name Role Phone Pro, Reggie Parr MD Primary Care Provider [phone]- [phone] Encounter Details Date Type Department Care Team (Latest Contact Info) Description 01/23/2022 2:25 PM EDT - 01/23/2022 11:59 PM EDT Hospital Encounter Radiology Film File [address] [place] [address] Discharge Disposition: Home - Self Care Allergies Active Allergy Reactions Criticality Noted Date Comments Bee Venom 07/02/2010 [place] Hives 06/29/2015 Other Allergy (See Comments) 012 [...] mRNA, LNP-s, No Pre serve, 2-Dose Series ([employer]) 09/03/2020,08/09/2020 SARS-COV-2 (COVID-19) Vaccine Unspecified 2021,04/23/2021,08/30/2020 documented as [...] - MAMMOGRAPHY (IMAGES ONLY, NO REPORT) Routine 01/23/2022 2:25 PM EDT documented in this encounter Results * RADIOLOGY EXAM - MAMMOGRAPHY (IMAGES ONLY, NO REPORT) (01/23/2022 2:25 PM EDT) 01/23/2022 2:21 PM EDT Narrative Scheduling, Silent - 05/28/2024 2:08 PM EST This is an imaging study not interpreted or resulted by a [employer] or [employer] contracted radiologist. us Precious JENKINS RAD MAMMOGRAPHY Final Result documented in this encounter Care Teams Strapper Operator Relationship Specialty Start Date End Date Pro, Reggie Parr MD [address] [place] [address] PCP - General Internal Medicine 04/05/19 documented as of this encounter
[2024-06-08 06:31] LABS: Hematocrit (blood only) 35.9 % (37.0-47.0); Hemoglobin 12.4 g/dl (12.0-16.0); Mean Corpuscular Hemoglobin 31.7 pg (25.0-34.0); Mean Corpuscular Hgb Conc 34.5 g/dL (32.0-36.0); Mean Corpuscular Volume 91.8 fL (80.0-100.0); Mean Platelet Volume 9.1 fL (9.4-12.4); Platelet Count 324 K/uL (130-400); RDW Coefficient of Variation 13.2 % (11.5-14.5); RDW Standard Deviation 44.7 fL (36.4-46.3); Red Blood Count 3.91 M/uL (4.20-5.40); White Blood Count 6.06 K/ul (4.8-10.8)
[2024-06-08 06:59] LABS: BUN Creatinine Ratio 39.6 (10-20); Calcium 8.3 mg/dl (8.6-10.3); Creatinine Clr Calc Pharmacy 65.3 ml/min; Potassium 3.4 mmol/L (3.5-5.1)
[2024-06-08 07:20] VITALS: RESP 16; O2SAT 98
--- NOTE | 2024-06-08 08:57 | Electrocardiogram Report ---
Test Reason : Blood Pressure : */* mmHG Vent. Rate : 85 BPM Atrial Rate : 85 BPM P-R Int : 170 ms QRS Dur : 68 ms QT Int : 350 ms P-R-T Axes : 54 31 49 degrees QTcB Int : 416 ms Normal sinus rhythm Low voltage QRS Borderline ECG When compared with ECG of 28-Mar-2024 20:32, No significant change was found Confirmed by Lalo Valadez ([id number]) on 06/08/2024 8:56:40 AM Referred By: Confirmed By: Lalo Valadez
[2024-06-08] MEDS: POTASSIUM CHLORIDE CRTAB 20 MEQ TABCR PO STA (10:44)
--- NOTE | 2024-06-08 11:02 | Orthopedic Consultation ---
Date of Consultation June 08, 2024 Assessment & Plan (1) Left knee pain: PT/OT Ice with easy wrap Weightbearing as tolerated with walker assistance Continue p.o. Tylenol and ibuprofen for relief of pain and inflammation Offered the patient's an oral corticosteroid or an injection with a corticosteroid however she declined and would like to treated conservatively because she is much better now than she was 2 days ago. Like the patient's follow-up with me sometime next week for reevaluation. If sh jun is still symptomatic she will consider the possibility of an injection. With questions contact our clinic at [phone] Supervising Physician Co-Signing Physician Notes I saw and examined the patient, reviewed her imaging, formulated the above plan, and agree with the note. Patient has arthritis on her x-rays. This is likely an arthritis exacerbation. Recommend medical management while she is an inpatient and outpatient conservative treatment following up with one of our PAs. History of Present Illness Reason for Consultation: 06/10 @ 9 am with MK Requesting Physician: Jack Alexandre MD Attending Physician: Kennedi Wyatt MD History of Present Illness 89-year-old female seen in consultation for left knee pain and ambulatory dysfunction. Patient states that she was unable to bear weight on the left lower extremity about 2 days ago and decided to come to the emergency depar tment. She states that before the pain developed she was working with a physical therapist in her home and states that they have changed some of her exercises and feels that this may have attributed to her issues. She states she really has no pain today. She states that she has been treated with Tylenol and ibuprofen and feels it is very effective. She states she is able to easily ambulate from her bedside chair to the bathroom and back with the assistance of her walker without discomfort. She denies chest pain, shortness of breath, fever, chills, sweats, nausea, vomiting, diarrhea or numbness or tingling in her left lower extremity. Allergies Allergy/AdvReac Type Severity Reaction Status Date / Time venom-honey bee Allergy Severe Unknown Verified 04/21/24 13:43 Sulfa (Sulfonamide Allergy Unknown Unknown Verified 04/21/24 13:43 Antibiotics) [employer] POWD Allergy Unknown Uncoded 04/21/24 13:43 Home Medications Medication Instructions Recorded Confirmed Type estradiol 0.025 mg/24 hr weekly 1 patch transdermal WK 05/20/19 06/07/24 History transdermal patch fexofenadine 180 mg tablet 180 mg PO DAILY PRN allergy 05/20/19 06/07/24 History symptoms #30 tabs fluticasone propionate 50 1 - 2 sprays intranasal DAILY PRN 05/20/19 06/07/24 History mcg/actuation nasal allergy symptoms #1 g spray,suspension epinephrine 0.3 mg/0.3 mL 0.3 mg (0.3 mL) IM PRN #2 ea 04/29/22 06/07/24 Rx injection, auto-injector multivitamin (Super Multivitamin 1 tab PO DAILY 04/29/22 06/07/24 History tablet) coenzyme Q10 100 mg capsule 100 mg PO DAILY #30 caps 12/12/22 06/07/24 Rx (CoQ-10) ibuprofen 600 mg tablet 600 mg PO BID #180 tabs 03/02/24 06/07/24 Rx vitamin B complex 1 tab PO DAILY 03/28/24 06/07/24 History carbidopa ER 50 mg-levodopa 200 mg 1 tab PO QID #360 tabs 04/21/24 06/07/24 Rx tablet,extended release Patient History Medical History Achilles tendinitis Surgical History No history of previous surgery Family History Sister , age 87 (twin). Colorectal cancer Myocardial infarction Dementia Grandmother (Maternal) Rheumatoid arthritis Father Emphysema, unspecified Denies family history of Ovarian cancer Prostate cancer Breast cancer Social History Smoking Status: Never smoker Second Hand Exposure: No; Do You Dip or Chew Tobacco: No; Tobacco Cessation Education Requested by Patient: No Hx Alcohol Use: No Hx Substance Use: No Preferred Language: Malian Communication Ability: Effective Visual Impairment: Limited Hearing Ability: Normal Network Architect Required: No Beliefs That Will Affect Care: None marital status: / Current Living Situation: Alone current occupational status: retired Other Information That Helps Us Care for You: No Feels Safe at Home: Yes Safety Concerns: Feels Safe At This Time Childhood Exposure to Second-Hand Smoke: Yes Diet: regular Dental Care, Regularly: Yes Physical Activity Frequency: Does not Exercise Seatbelt Use: always Sunscreen Use: Yes Assistive Devices: Cane and Walker Review of Systems Review of Systems: All systems reviewed & are unremarkable except as noted in Subjective Physical Exam Physical Exam: Left knee: Range of motion is 4 degrees of extension to 100 degrees of flexion. Patient experiences some mild medial and lateral joint tenderness when the knee is palpated in the flexed position. Her patella was not mobile due to arthritic change within the patellofemoral joint. She was able to easily perform extra leg raise test actively dorsi and plantarflex her foot. Her peripheral pulses were 2+. She was neurovascularly intact in the left lower extremity. She had no laxity with varus or valgus stressing. AP drawer test was negative. Gait was normal with the assistance of a walker Results & Data Vital Signs (Past 12 Hours) Vital Signs Temp Pulse Resp BP Pulse Ox O2 Del Method 06/08/24 07:19 36.4 C L 70 16 158/80 H 98 Room Air Diagnostic Findings Laboratory Results WBC 6.06 K/ul (4.8-10.8) 06/08/24 06:15 RBC 3.91 M/uL (4.20-5.40) L 06/08/24 06:15 Hgb 12.4 g/dl (12.0-16.0) 06/08/24 06:15 Hct 35.9 % (37.0-47.0) L 06/08/24 06:15 MCV 91.8 fL (80.0-100.0) 06/08/24 06:15 MCH 31.7 pg (25.0-34.0) 06/08/24 06:15 MCHC 34.5 g/dL (32.0-36.0) 06/08/24 06:15 RDW Std Deviation 44.7 fL (36.4-46.3) 06/08/24 06:15 RDW Coeff of Scott 13.2 % (11.5-14.5) 06/08/24 06:15 Plt Count 324 K/uL (130-400) 06/08/24 06:15 MPV 9.1 fL (9.4-12.4) L 06/08/24 06:15 Immature Gran % (Auto) 0.1 % 06/07/24 16:14 Neut % (Auto) 77.6 % 06/07/24 16:14 Lymph % (Auto) 13.9 % 06/07/24 16:14 [place] % (Auto) 7.4 % 06/07/24 16:14 Eos % (Auto) 0.7 % 06/07/24 16:14 Baso % (Auto) 0.3 % 06/07/24 16:14 Neut # (Auto) 6.91 K/uL (1.40-6.50) H 06/07/24 16:14 Lymph # (Auto) 1.24 K/uL (1.20-3.40) 06/07/24 16:14 [place] # (Auto) 0.66 K/uL (0.11-0.59) H 06/07/24 16:14 Eos # (Auto) 0.06 K/uL (0.00-0.50) 06/07/24 16:14 Baso # (Auto) 0.03 K/uL (0.00-0.20) 06/07/24 16:14 Immature Gran # (Auto) 0.01 K/uL (0.01-0.20) 06/07/24 16:14 Sodium 145 mmol/L (136-145) 06/08/24 06:15 Potassium 3.4 mmol/L (3.5-5.1) L 06/08/24 06:15 Chloride 110 mmol/L (98-107) H 06/08/24 06:15 Carbon Dioxide 29 mmol/L (21-32) 06/08/24 06:15 Anion Gap 6 (3-11) 06/08/24 06:15 BUN 19 mg/dl (6-23) 06/08/24 06:15 Creatinine 0.48 mg/dl (0.6-1.2) L 06/08/24 06:15 Est Cr Clr Drug Dosing 65.3 ml/min 06/08/24 06:15 eGFR 91.62 06/08/24 06:15 BUN/Creatinine Ratio 39.6 (10-20) H 06/08/24 06:15 Glucose 96 mg/dl (70-99(Fasting)) 06/08/24 06:15 Calcium 8.3 mg/dl (8.6-10.3) L 06/08/24 06:15 Magnesium 1.9 mg/dl (1.7-2.4) 06/07/24 16:14 Total Bilirubin 0.6 mg/dl (0.2-1.0) 06/07/24 16:14 AST 19 U/L (13-39) 06/07/24 16:14 ALT 13 U/L (7-52) 06/07/24 16:14 Alkaline Phosphatase 55 U/L (34-104) 06/07/24 16:14 Total Protein 5.9 gm/dl (6.0-8.3) L 06/07/24 16:14 Albumin 3.6 gm/dl (3.4-5.0) 06/07/24 16:14 Globulin 2.3 gm/dl (2.5-4.0) L 06/07/24 16:14 Albumin/Globulin Ratio 1.6 (0.9-2) 06/07/24 16:14 Urine Color Yellow 06/07/24 16:54 Urine Appearance Clear (Clear) 06/07/24 16:54 Urine pH 6.0 (4.5-7.5) 06/07/24 16:54 Ur Specific [place] 1.011 (1.000-1.030) 06/07/24 16:54 Urine Protein Negative (Negative) 06/07/24 16:54 Urine Glucose (UA) Negative (Negative) 06/07/24 16:54 Urine Ketones Negative (Negative) 06/07/24 16:54 Urine Blood Negative (Negative) 06/07/24 16:54 Urine Nitrite Negative (Negative) 06/07/24 16:54 Urine Bilirubin Negative (Negative) 06/07/24 16:54 Urine Urobilinogen Negative (Negative) 06/07/24 16:54 Ur Leukocyte Esterase Negative (Negative) 06/07/24 16:54 SARS-CoV-2, RNA, NAAT NEGATIVE (NEGATIVE) 06/07/24 16:14 Impressions Knee X-Ray 06/07/24 15:58 EXAM: Radiographs of the Left Knee 3 Views INDICATION: Trauma. TECHNIQUE: Three views of the left knee. COMPARISON: No relevant prior studies available. FINDINGS: Bones/joints: There is mild spurring and subchondral cystic change of the patellofemoral joint. There is mild medial joint line spurring. There is no fracture or erosion. Soft tissues: No abnormality noted. No radiopaque foreign body noted. Vasculature: Atherosclerotic calcification noted in the thigh and calf. IMPRESSION: Mild patellofemoral osteoarthritis. No acute disease. ACT 112: Negative or not required by law. Electronically signed by Ada Patel 06-07-2024 4:54 PM (1) Left knee pain Chronicity: acute Qualified Code(s): M25.562 - Pain in left knee
[2024-06-08 14:59] VITALS: BP 152/80; PULSE 95
[2024-06-08] MEDS ORDERED: predniSONE 20 MG TAB PO SCH (15:00)
--- NOTE | 2024-06-08 15:01 | Discharge Summary ---
Discharge Summary Date of Service June 08, 2024 Principal Dx & Hospital Course #1 = Principal Diagnosis (1) Ambulatory dysfunction: Patient reportedly pulled her left knee during a PT session on 06/03 While she was able to ambulate over the weekend, she developed acute onset of ambulatory dysfunction on Thursday 06/07 Patient planning to go to [facility] rehab, however she is unable to get in on 06/07 but was told she would have a room available on Friday 06/08 Plan is for discharge to [facility] on 06/08 Left knee xrays show mild OA No evidence of infection on exam Consulted Ortho who offered injection for OA--> pt declined injection as she was already feeling so much better by day of discharge, but did want to try oral steroids-give predisone 40mg po daily x 5 day burst and hold ibuprofen while on steroids continue tylenol prn pain ice to area PT/OT recommends rehab f/u with Ortho in 1 week (2) Left knee pain: as above (3) Dehydration: Patient appeared clinically dry on exam on admission w/ elevated BUN/creatinine ratio at 45.2 Encourage dp.o. fluids in the setting of IVF national shortage and now feels better, labs improved Gave 20 meq po KCl x 1 (4) Parkinsonism: Continue Sinemet QID Plan Disposition: dc to [facility] for acute rehab DNR/DNI VTE PPx: Teds Notes For Next Care Provider F/u with Ortho in 1 week Medication Changes From Visit Added prednisone 40mg po daily x 5 days HOLD ibuprofen x 5 days Admission HPI Per Admitting Provider Mildred is an 89-year-old female with PMH of parkinsonism, HLD, hypothyroidism, sciatic pain, and balance disorder. She presented via EMS on 06/07 for ambulatory dysfunction. Patient lives alone. Daughter at bedside provides nino tional history: Patient was reportedly ambulating fine last night around 5 PM, then when daughter went to the house around 1030 this morning, patient reports she could not ambulate. Patient does believe she tweaked the medial aspect of her left knee during physical therapy last 06/03. She has been ambulating with her rollator without difficulty over the weekend, but reports that last night things "fell apart". She reports she was barely able to move, and cannot bear weight on her left leg. She denies any new/recent injuries to the left leg. She denies any recent falls falls. Daughter reports that she called in [facility] today, but there was not a bed available until tomorrow, and she was told go to the ED if concern for ambulatory dysfunction. Patient reports she took her regular morning medicine today; no recent change in medications. Patient manages her own medicine at home. She reports she has been taking ibuprofen as needed for the left knee pain, but reports no pain at present (only with bearing weight and twisting her knee). She normally takes ibuprofen 6 mg twice daily, but she has been taking it 3 times daily as needed for pain. She denies smoking, tobacco use, recent alcohol use. Additionally, she reports that she does have poor oral intake recently, which could be due to ambulatory dysfunction. She believes dehydration could be playing a role in her ambulatory dysfunction, and reports she is feeling much better after drinking water in the ED. Patient is mildly hypertensive at 165/99 at time of admission; vitals otherwise stable. ED course: ROS: Patient endorses left leg pain with bearing weight/twisting, ambulatory dysfunction, and chronic cough. Patient denies fever, chills, night sweats, dizziness, lightheadedness, headache, chest pain, chest palpitations, SOB, cough, abdominal pain, N/V/D, changes in urinary or bowel habits, blood in the urine or stool, burning with urination, or numbness/tingling in the left leg. Discharge Exam Constitutional WD/WN, vitals as above Respiratory normal respiratory effort, lungs clear to auscultation Cardiovascular RRR, no murmur, no edema Musculoskeletal Left knee no effusion or erythema, ROM 0-120, no tenderness of joint lines or patella Discharge Plan Discharge Items Patient Disposition: Transfer Inpatient Rehab Fac Reason For Visit: AMBULATORY DYSFUNCTION Discharge Diagnosis: Left knee pain Ambulatory dysfunction Condition on Discharge: Good Activity: As commented below Bathing: No limitations Exercise/Sports: Gradually increase as tolerated Exercise Comment: with PT/OT Non-emergency contact: Primary Care Provider and Surgeon Call non-emergency contact if: you have any medication questions, your symptoms worsen and your pain is not controlled Follow-up/Referrals: Reggie Lubin MD [Primary Care Provider] - (Follow up within 1-2 weeks after discharge from rehab) Jack Alexandre MD [Physician] - (Follow up in 1 week with EDGAR Roblero) Diet: Regular Addtl Attending Provider Instructions: Continue applying ice to the left knee and you can weight bear as tolerated with a walker for assistance. You will go to rehab for physical and occupational therapy for strengthening. Please take the prednisone 40mg daily x 4 more days to help with inflammation from your arthritis in the knee. Pending Studies at Discharge: No Stand-Alone Forms: My [facility] Skilled Items Patient informed of condition?: Yes DNR: Yes Discharge Level of Care: Acute rehab Communicable Disease: No Discharge Prognosis: Improving Lines: None Urinary Catheter: No Medications and DC Order Prescriptions: New prednisone 20 mg Tablet 40 mg PO QAM Qty: 8 0RF acetaminophen 325 mg Tablet 650 mg PO Q4H PRN (Reason: pain) Qty: 30 0RF Continued estradiol 0.025 mg/24 hr patch weekly 1 patch TD WK fexofenadine 180 mg tablet 180 mg PO DAILY PRN (Reason: allergy symptoms) Qty: 30 Rx Instructions: Unable to verify OTC meds at this date/time. fluticasone propionate 50 mcg/actuation spray,suspension 1 - 2 sprays intranasal DAILY PRN (Reason: allergy symptoms) Qty: 1 Rx Instructions: Unable to verify OTC meds at this date/time. multivitamin [Super Multivitamin] Tablet 1 tab PO DAILY Rx Instructions: Unable to verify OTC meds at this date/time. epinephrine 0.3 mg/0.3 mL auto-injector 0.3 mg IM PRN Qty: 2 3RF coenzyme Q10 [CoQ-10] 100 mg capsule 100 mg PO DAILY Qty: 30 0RF Rx Instructions: Unable to verify OTC meds at this date/time. carbidopa-levodopa 50-200 mg tablet extended release 1 tab PO QID Qty: 360 1RF Rx Instructions: divide evenly over waking hours vitamin B complex Tablet 1 tab PO DAILY Rx Instructions: Unable to verify OTC meds at this date/time. Held ibuprofen 600 mg tablet 600 mg PO BID Qty: 180 1RF Hold Instructions: Resume on 06/13/24. Rx Instructions: Never take on an empty stomach and be sure to drink plenty of water Discharge Orders: Discharge Order (Routine); Ordered 06/08/24 Ordered By: Kennedi Wyatt Admission Data Admit Date/Time: 06/07/24 18:01 Attending Provider: Kennedi Wyatt Admit Provider: Malik Philip Primary Care Provider: Reggie Lubin Other Providers: [facility]; Malik Philip; Jack Alexandre Hospital Stay Data Consultations 06/07/24 17:12 ED Decision to Admit Stat 06/08/24 09:23 Consult Orthopedic Surgery Routine Pending Results Patient Have Any Pending Studies at Discharge: No Discharge Instructions Given to Patient (Per Discharging Provider) Continue applying ice to the left knee and you can weight bear as tolerated with a walker for assistance. You will go to rehab for physical and occupational therapy for strengthening. Please take the prednisone 40mg daily x 4 more days to help with inflammation from your arthritis in the knee. Total Time Total Time Spent Total Time Spent (In Minutes): 35 min Total Time Includes: Examination of the Patient, Discharge Planning, Medication Reconciliation and Communication With Other Providers (Ortho PA) Coding Level of Care Code 44117 INP/OBS DISCH >30 MIN Diagnoses Ambulatory dysfunction R26.2 Left knee pain M25.562 Chronicity: acute Dehydration E86.0 Parkinsonism G20
== END 2024-06-08 15:21 ==
LOC: 3E 15:41 → ED 15:41 → SUATTDRO 18:01 → 3E 20:07